=== PATIENT | female | born 1985 | race Caucasian/White ===

== ENCOUNTER 2023-04-07 13:50 | Outpatient (CLI) | payer OTHER, SELFPAY ==
--- NOTE | 2023-04-07 14:00 | CRLHL7_ITS ---
For Patients: As a result of the Cures Act, medical imaging exams and procedure reports are released immediately into your electronic medical record. You may view this report before your referring provider. If you have questions, please contact your health care provider. BILATERAL SCREENING MAMMOGRAM WITH COMPUTER-AIDED DETECTION AND TOMOSYNTHESIS TECHNIQUE: CC and MLO views were obtained. These mammographic images have been obtained using full-field digital technique. These mammographic images were interpreted with the benefit of computer-aided detection. Breast Tomosynthesis was used in this interpretation. COMPARISON FILM: 12/04/21. FINDINGS: The breasts are heterogeneously dense, which may obscure small masses IMPRESSION: There is no radiographic evidence for malignancy. ASSESSMENT: BI-RADS Category 1: Negative RECOMMENDATION: Routine screening mammogram in 1 year. A lay language report of this examination will be provided to the patient. ROSIE GUEVARA M.D. Diagnostic/Nuclear Medicine Radiologist [email or web address] ALISON:pedro Transcribed: 2:10 p.mElaine vasquez/Dictated by: Rosie Guevara MD @ 04/08/2023 9:21:00 AM (Electronically Signed)
== END 2023-04-07 13:51 | disposition home or self-care (01) ==
LOC: MAMMO 13:52
PROVIDERS: PCP Internal Medicine; Visit Provider Physician Assistant
DX: Z12.31 Encounter for screening mammogram for malignant neoplasm of breast (principal); R92.2 Inconclusive mammogram; Z80.3 Family history of malignant neoplasm of breast
CPT/HCPCS: 77063; 77067

== ENCOUNTER 2024-01-13 08:47 | Outpatient (CLI) | payer BC, SELFPAY ==
--- OUTSIDE RECORDS SUMMARY | 2024-01-13 08:49 | XMS_ITS | Clinical Summary ---
Author Organization [facility] Address [place], [place] [address] Care Team Providers Care Director Of Reimbursement Name Role Phone Abel Meléndez MD Primary Care Provider [phone] Allergies No known active allergies Medications Medication Sig Dispensed Refills Start Date End Date Status fluticasone, 50 mcg per actuation, nasal (FLONASE) spray Inhale 1 [place] into both nostrils once daily. 1 Bottle 0 01/01/2013 Active EPINEPHrine (EPIPEN JR) 0.15 mg/0.3 mL (1:2,000) injection Inject 0.15 mg intramuscular one time if needed for Allergic Reaction. 1 Each 0 01/01/2013 Active levalbuterol (XOPENEX HFA) 45 mcg/actuation inhaler Inhale 1-2 Puffs by mouth every 4 hours if needed. 0 01/01/2013 Active INHALANT IMMUNOTHERAPYIndica tions:Allergic rhinitis, unspecified allergic rhinitis type See recipe/order under Chart Review/Scan Tab, dated 07/01/14 0 02/24/2015 Active Active Problems No known active problems Social History Tobacco Use Types Packs/Day Years Used Date Smoking Tobacco: Never Smokeless Tobacco: Never Alcohol Use Standard Drinks/Week Comments Yes 0 (1 standard drink = 0.6 oz pur e alcohol) occasionally Sex and Gender Information Value Date Recorded Sex Assigned at Not on file Gender Identity Not on file Sexual Orientation Not on file Obstetrics History Last Filed Vital Signs Vital Sign Reading Time Taken Comments Blood Pressure 119/77 01/01/2013 10:49 AM CDT tower Pulse 91 01/01/2013 10:49 AM CDT Temperature 36.4 ??C (97.6 ??F) 01/01/2013 1 0:49 AM CDT Respiratory Rate - - Oxygen Saturation 100% 01/01/2013 10: 49 AM CDT room air Inhaled Oxygen Concentration - - Weight 75.3 kg (165 lb 14.4 oz) 013 10:49 AM CDT Height 172.7 cm (5' 8) 01/01/2013 10:4 9 AM CDT Body Mass Index 25.23 01/01/2013 10:49 AM CDT Plan of Treatment Health Maintenance Due Date Last Done Comments Tdap 11/11/1994 Depression screening for age 12+ 1995 HIV for age 15-65 11/11/1998 BMI (ht and wt on same day) for age 18+ 11/11/2001 Hepatitis C screening for age 18-79 11/11/2001 Tetanus booster 2003 COVID-19 vaccine series (2022-24 season) 2023 Pap test for age 21-65 01/06/2024 , 01/05/2021, 06/04/2016, Additional history exists Influenza for age 9-49 02/22/2024 Pneumococcal series for age 6-64 Aged Out No longer eligible based on patient's age to complete this topic Procedures Procedure Name Priority Date/Time Associated Diagnosis Comments TRANSMISSION SPECIALIST THIN PREP PAP SCREEN IMAGED Routine 01/05/2021 11:00 AM CDT from Last 3 Months or Most Recently Relevant to Health Maintenance Results * TRANSMISSION SPECIALIST THIN PREP PAP SCREEN IMAGED (01/05/2021 11:00 AM CDT) Case Report Gynecologic Cytology Report ? Case: [id number] ? Authorizing Provider: ??Caron Hale PA-C ?Collected: ? 01/05/2021 1100 ? Ordering Location: ? [facility] ?Received: ?01/08/2021 0806 ? First Screen: ?Rocio Marie ? Specimen: ?TRANSMISSION SPECIALIST ThinPrep Vial Screening, Cervical/Vaginal ? 01/16/2021 3:00 PM CDT [facility] INTERPRETATION/ RESULT NEGATIVE FOR INTRAEPITHELIAL LESION OR MALIGNANCY (NIL) (none) 01/16/2021 3:00 PM CDT [facility] IMEN ADEQUACY Satisfactory for evaluation No endocervical component seen 01/16/2021 3:00 PM CDT [facility] HPV REQUEST HPV and PAP 01/16/2021 3:00 PM CDT [facility] Last Pap Date 05/05/2016 01/16/2021 3:00 PM CDT [facility] Last Pap Result NIL 3:00 PM T [facility] Comment:-HPV Additional Information 01/16/2021 3:00 PM CDT [facility] Comment: Interpreted at [facility] - [address], [place] [address] Automated Review Successful 01/16/2021 3:00 PM CDT [facility] Comment:Specimen processed s uccessfully by automated entry level drafter device, ThinPrep Imaging System, [employer] ANCILLARY TESTING TRANSMISSION SPECIALIST HPV Ordered, Please see separate report 01/16/2021 3:00 PM CDT [facility] Note The pap test is a screening technique, not a diagnostic procedure. It is used primarily to screen for squamous cancers and precursor lesions. Published studies have shown that it is subject to both false negative and false positive results. The pap test should not be used as the sole means to diagnose or exclude pre-malignant and malignant lesions. 01/16/2021 3:00 PM CDT [facility] Other (Cervical/Vagina l) 01/05/2021 11:00 AM CDT 01/08/2021 8:06 AM CDT September Alexia [facility]TOLOG[facility] [address] [place] [address], from Last 3 Months or Most Recently Relevant to Health Maintenance Care Teams Director Of Reimbursement Relationship Specialty Start Date End Date Abel Meléndez MD [address] [place] [address] PCP - General 01/08/07
--- OUTSIDE RECORDS SUMMARY | 2024-01-13 08:49 | XMS_ITS | Clinical Summary ---
Author Organization [facility] Address [address] [place] [id number] Care Team Providers Care Wool Sacker Name Role Phone Clinic, [facility] Primary Care Provider Allergies Active Allergy Reactions Criticality Noted Date Comments No Known Drug Allergy 05/18/2004 Medications Medication Sig Dispensed Refills Start Date End Date Status LORATADINE 10 MG OR TABS 1 TABLET DAILY 05/18/2004 Active ALPRAZolam (XANAX) 0.5 MG tablet Take 0.5 mg by mouth 3 times daily as needed for anxiety Active Active Problems Problem Noted Date Diagnosed Date Palpitations 05/05/2018 Tachycardia 05/05/2018 Family history of ischemic heart disease 018 Immunizations Name Administration Dates Next Due TD,PF 7+ (Tenivac) 02/21/1998 Family History Medical History Relation Comments Hypertension Father Lipids Father Obesity Father Cancer Maternal Grandfather Skin cancer Cerebrovascular Disease Maternal Grandfather Eye Disorder Maternal Grandfather Cataracts Gastrointestinal Disease Maternal Grandfather Ga stritis Hypertension Maternal Grandfather Osteoporosis Maternal Grandfather Respiratory Maternal Grandfather Emphysema-f armer's lung Arthritis Maternal Grandmother Circulatory Maternal Grandmother Poor circul ation-diabetes Diabetes Maternal Grandmother Type 2 Eye Disorder Maternal Grandmother Cataracts Hypertension Maternal Grandmother Depression Mother Run's on mom's s tiffanie Musculoskeletal Disorder Mother Scolios is? Psychotic Disorder Mother Possible schi zophrenia-no formal diagnosis Breast Cancer Paternal Grandfather C.A.D. Paternal Grandfather Double bypa ss in late 70's Hypertension Paternal Grandfather Lipids Paternal Grandfather Obesity Paternal Grandfather Prostate Cancer Paternal Grandfather Circulatory Paternal Grandmother Poor circul ation-diabetes Diabetes Paternal Grandmother Type 2 Hypertension Paternal Grandmother Lipids Paternal Grandmother Obesity Paternal Grandmother Respiratory Paternal Grandmother Emphysema Relation Status Comments Brother Alive Father in MVA Maternal Grandfather Maternal Grandmother Alive Mother Alive Paternal Grandfather Paternal Grandmother Alive Sister Alive Social History Tobacco Use Types Packs/Day Years Used Date Smoking Tobacco: Never Smokeless Tobacco: Never Alcohol Use Standard Drinks/Week Comments Yes 0 (1 standard drink = 0.6 oz pur e alcohol) 0-1 Drinks Per Week Sex and Gender Information Value Date Recorded Sex Assigned at Not on file Gender Identity Not on file Sexual Orientation Not on file Last Filed Vital Signs Vital Sign Reading Time Taken Comments Blood Pressure 122/80 05/07/2018 7:33 AM SEMIAUTOMATIC 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 Pulse 108 05/07/2018 7:33 AM SEMIAUTOMATIC 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 Temperature 36.5 ??C (97.7 ??F) 05/18/2004 2:06 PM CS T Respiratory Rate 20 05/18/2004 2:06 PM SEMIAUTOMATIC 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 Oxygen Saturation - - Inhaled Oxygen Concentration - - Weight 77.1 kg (170 lb) 05/07/2018 7:33 AM SEMIAUTOMATIC 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 Height 171.5 cm (5' 7.5) 05/07/2018 7:33 AM SEMIAUTOMATIC 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 Body Mass Index 26.23 05/07/2018 7:33 AM SEMIAUTOMATIC 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 Plan of Treatment Not on file Care Teams Wool Sacker Relationship Specialty Start Date End Date Clinic, [facility] [address] [place] [address] PCP - General 02/19/18
--- OUTSIDE RECORDS SUMMARY | 2024-01-13 08:49 | XMS_ITS | Referral Summary ---
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 Pulse 108 05/07/2018 7:33 AM MOTORCYCLE MECHANIC APPRENTICE Temperature 36.5 ??C (97.7 ??F) 05/18/2004 2:06 PM CS T Respiratory Rate 20 05/18/2004 2:06 PM MOTORCYCLE MECHANIC APPRENTICE Oxygen Saturation - - Inhaled Oxygen Concentration - - Weight 77.1 kg (170 lb) 05/07/2018 7:33 AM MOTORCYCLE MECHANIC APPRENTICE Height 171.5 cm (5' 7.5) 05/07/2018 7:33 AM MOTORCYCLE MECHANIC APPRENTICE Body Mass Index 26.23 05/07/2018 7:33 AM MOTORCYCLE MECHANIC APPRENTICE Plan of Treatment Not on file Care Teams Wringer And Setter Relationship Specialty Start Date End Date Clinic, [facility] [address] [place] [address] PCP - General 02/19/18
--- OUTSIDE RECORDS SUMMARY | 2024-01-13 08:50 | XMS_ITS | Encounter Summary ---
Author Organization [place] Address [facility] [place] [address] Care Team Providers Care Input Output Clerk Name Role Phone Nicole Taylor MD Primary Care Provider Clinic, [facility] Primary Care Provider Encounter Details Date Type Department Care Team (Late st Contact Info) Description 11/01/2009 Office Visit-[facility] [address] [phone] Marshall Poole MD [id number] [place] [address] Social History Tobacco Use Types Packs/Day Years Used Date Smoking Tobacco: Never Alcohol Use Standard Drinks/Week Comments Yes 0 (1 standard drink = 0.6 oz pur e alcohol) 0-1 Drinks Per Week Sex and Gender Information Value Date Recorded Sex Assigned at Not on file Gender Identity Not on file Sexual Orientation Not on file documented as of this encounter Progress Notes * Marshall Poole MD - 11/03/2009 8:51 AM CDT Progress Note Created by: Marshall Poole M.D. DATE: 11/01/2009 ADRIEL MCNAIR DATE OF : 1985 AGE: [age] years old Referring Physician: EUGENIA ANTUNEZ Referring Clinic: [facility] CURRENT DIAGNOSES 1. Tachycardia, 785.0 2. - Shortness of Breath, 786.05 3. Dizziness, 780.4 ALLERGIES NKA MEDICATIONS (prior to changes made today) 1. Metoprolol Tartrate 25 Mg Tablet, 1 p.o. twice daily 2. Fexofenadine 180 Mg Tablet, 1 p.o. PRN as Directed 3. Flonase 50 mcg/Actuation [place], Suspension, Take as Directed PRN CHIEF COMPLAINTS Cardiac Assessment HISTORY OF PRESENT ILLNESS I had the pleasure and opportunity of seeing your patient, Adriel Mcnair, in follow up today. As youknow, Adriel is a very pleasant 23-year-old female with a history of inappropriate sinus tachycardia, palpitations, dizziness, and short of breath. She is here for routine cardiovascular follow up. Over the past year, Adriel has done very well. She denies any chest pain. She gets occasional palpitations, but she has had no syncope, near syncope, PND, orthopnea, or pedal edema. She has now changed her diet to become a vegetarian and is afraid that she has overcompensated in her eating of other foods. PAST HISTORY Past Medical Illnesses: asthma, tachycardia,, Left lung pleursy (02/2007) Past Cardiac Illnesses: inappropriate sinus tachycardia Infectious History: no previous history of significant infectious diseases. Trauma History: no previous history of significant trauma. Surgeries/Procedures - General: no previous surgical procedures. Cardiology Procedures-Invasive: no previous interventional or invasive cardiology procedures. Cardiology Procedures-Noninvasive: echocardiogram December 2006, September 2008, holter monitor February 2007,12/27 PMHx Echo Results: 12/27 normal echo, 09/29 No regional wall abnormalities, Trace MR, TR, PVR. Left Ventricular Ejection Fraction: 55-60% by echo 12/27, 09/29 EF 65-70% per echo FAMILY HISTORY: Father - Age 45, and mva; Grandmother (P) - CABG and of myocardial infarction; Grandfather (P) - CABG and of myocardial infarction; CARDIAC RISK FACTORS Tobacco Abuse: negative; Family History of Heart Disease: positive; Hyperlipidemia: lipid status unknown; Hypertension: positive; Diabetes Mellitus: negative; Prior History of Heart Disease: negative; Obesity:BMI<GT>25 (Over weight); Sedentary Life Style:negative; Age:negative; Menopausal:negative SOCIAL HISTORY Alcohol Use - drinks occasionally and 1 time week; Smoking - never smoked; Diet - caffeine use-none, high fiber diet and vegetarian; Lifestyle - single; Exercise - walking and 30 minutes every other day; Seat Belt Use - always; 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 EYES wears eye glasses/contact lenses EARS, NOSE, THROAT, MOUTH positional vertigo, has subsided RESPIRATORY history of asthma CARDIOVASCULAR negative for chest discomfort, palpitations, oocas ABDOMINAL denies change in bowel habits, dyspepsia, ulcer disease, hematochezia or melena. GENITOURINARY-FEMALE regular periods MUSCULOSKELETAL mild pain upper back, same NEUROLOGICAL headaches - gone PSYCHIATRIC anxiety, stress ENDOCRINE denies any history of hyperlipidemia, thyroid disease or diabetes mellitus. HEMATOLOGICAL/IMMUNOLOGIC seasonal allergies PHYSICAL EXAMINATION VITAL SIGNS: Blood Pressure: 122/71Sitting, Right arm, large cuff Pulse- 86.00/min. Weight- 202.40 lbs. Height- 67.00 Temperature- .00 CONSTITUTIONAL well developed, well nourished, in no acute distress SKIN warm and dry to touch HEAD normocephalic, atraumatic EYES Pupils equal and round, conjunctivae and lids unremarkable, sclera white, no xanthalasma ENT no pallor or cyanosis, dentition good NECK carotid pulses are full and equal bilaterally, JVP normal, no carotid bruit, no thyromegaly CHEST clear to auscultation, normal respiratory excursion CARDIAC Regular S1S2, no murmurs, gallops or rubs, heart rate in the 90's PERIPHERAL PULSES 3+ posterior tibial and dorsalis pedis pulses bilaterally EXTREMITIES & BACK no clubbing, cyanosis or edema NEUROLOGICAL no gross motor deficits noted, affect appropriate, oriented to time, person and place. MEDICATIONS UPDATED/STARTED TODAY: Fexofenadine 180 Mg Tablet, 1 p.o. PRN as Directed, 0 Flonase 50 mcg/Actuation [place], Suspension, Take as Directed PRN, #0 Metoprolol Tartrate 25 Mg Tablet, 1 p.o. twice daily, #60 MEDICATIONS REFILLED/STOPPED TODAY: Astrid 28 3-0.03 mg Tablet 1 p.o. qHS 0 Patient Terminated, Fexofenadine 180 mg Tablet 1 p.o. qAM 0Directions Changed-No Abbrvs and Metoprolol Tartrate 25 mg Tablet 1 p.o. twice daily #60 Refill ASSESSMENT/PLAN: Overall, it is a pleasure seeing Adriel back in the clinic. She is stable from a cardiovascular standpoint. Her heart rate is well controlled on beta-blockade. She has no evidence of heart murmur, congestive heart failure, or significant cardiac arrhythmias. Recommend continuing with beta-blockade. We will plan on seeing her in one or two years' time or sooner if symptoms warrant. Please do not hesitate to call me with any questions or concerns. TODAYS ORDERS 1. F/U with Marshall Poole MD 1 year Marshall Poole M.D. documented in this encounter Plan of Treatment Not on file documented as of this encounter Visit Diagnoses Not on filedocumented in this encounter Care Teams Input Output Clerk Relationship Specialty Start Date End Date Nicole Taylor MD [address] [address] PCP - General 05/18/04 02/18/[address] [address] PCP - General 02/19/18 documented as of this encounter
--- OUTSIDE RECORDS SUMMARY | 2024-01-13 08:50 | XMS_ITS | Encounter Summary ---
Author Organization [place] Address [facility] [place] [address] Care Team Providers Care Cotton Gin Yard Supervisor Name Role Phone Nicole Taylor MD Primary Care Provider Clinic, [facility] Medical Primary Care Provider Encounter Details Date Type Department Care Team (Late st Contact Info) Description 01/19/2007 Office Visit-[facility] Heart [id number] [place] [phone] Farheen Dudley, TONEY Social History Tobacco Use Types Packs/Day Years Used Date Smoking Tobacco: Never Alcohol Use Standard Drinks/Week Comments Yes 0 (1 standard drink = 0.6 oz pur e alcohol) 0-1 Drinks Per Week Sex and Gender Information Value Date Recorded Sex Assigned at Not on file Gender Identity Not on file Sexual Orientation Not on file documented as of this encounter Progress Notes * Farheen Dudley NP - 01/23/2007 8:32 AM CDT Progress Note Created by: Farheen Dudley, N.P. [id number] DATE: 01/19/2007 ADRIEL MCNAIR DATE OF : 1985 AGE: [age] years old Referring Physician: EUGENIA ANTUNEZ Referring Clinic: [facility] CURRENT DIAGNOSES 1. Tachycardia, 785.0 2. - Shortness of Breath, 786.05 3. Dizziness, 780.4 ALLERGIES NKA MEDICATIONS (prior to changes made today) 1. Astrid 28 3/0.3mg, 1 p.o. q.d. 2. Lorazepam 1 mg, 1 p.o. b.i.d. 3. Metoprolol ER 25 mg, 1 tablet by mouth qd CHIEF COMPLAINTS F/u echo HISTORY OF PRESENT ILLNESS I had the pleasure of seeing Ms. Adriel Mcnair, a 21-year-old female, who comes to the clinic today for follow up of her most recent echocardiogram per Dr. Poole's request. Ms. Mcnair was seen in consultation at the [facility] on January 14, [address] Marshall Poole with some concerns over her heart racing. She did have a Holter monitor on December 23 that revealed her heart rate to be averaged at 88 beats per minute, minimum of 65 beats per minute, and a maximum of 146 beats per minute with minimal ectopy. With exercise, her heart rate did elevate to 160 to180 beats per minute and was staying persistently elevated, thereafter, at 120 beats per minute forthe remainder of the day. This was quite concerning to her. She actually had also seen the Emergency Room for these episodes of a fast heart rate. She stopped all caffeine. Her asthma medications were also discontinued as her primary care provider felt that this could be contributing to her tachycar ning. Unfortunately, there was no resolution. She had been initiated on lorazepam one tablet twice daily due to the feeling that there might be some anxiety related to the tachycardia. Again, there was no resolution. Dr. Poole did recommend her to undergo an echocardiogram to assess for any cardiomyopathy as a possible underlying problem as she had a viral illness prior to noting the tachycardia. An echocardiogram was performed on January 14, 2007 revealing normal left ventricular chamber size. Her ejection fraction was estimated to be 55% to 60%. Both atria were normal in size. Normal function of the cardiac valves. Mild dilatation of the IVC. No pericardial effusion. Aortic root was normal in size. Sinus tachycardia was noted throughout the study. She has not exercised since the tachycardia began approximately a month ago. She is quite tearful during the conversation as she is quite fearful as to why this is happening and why it has not gottenbetter. She does deny any chest, arm, or jaw pain, PND, orthopnea, syncope, near syncope, dizziness, lightheadedness, palpitations, or edema. She does complain of some fullness in her chest when her heart rate is fast, although this subsides after a few deep breaths and her anxiety medication has impacted this as well. Please see below for review of systems, past medical history, and physical examination. PAST HISTORY Past Medical Illnesses: asthma, tachycardia, Past Cardiac Illnesses: no previous history of cardiac disease. Infectious Diseases: no previous history of significant infectious diseases. Surgical Procedures: no previous surgical procedures. Trauma History: no previous history of significant trauma. Cardiology Procedures-Invasive: no previous interventional or invasive cardiology procedures. Cardiology Procedures-Noninvasive: no previous non-invasive cardiovascular testing. FAMILY HISTORY: Father - Age 45, and mva; Grandmother (P) - CABG and of myocardial infarction; Grandfather (P) - CABG and of myocardial infarction; CARDIAC RISK FACTORS Tobacco Abuse: negative; Family History of Heart Disease: positive; Hyperlipidemia: lipid status unknown; Hypertension: positive; Diabetes Mellitus: negative; Prior History of Heart Disease: negative; Obesity:BMI25 (Over weight); Sedentary Life Style:negative; Age:negative; Menopausal:negative SOCIAL HISTORY Alcohol Use - denies drinking; Smoking - never smoked; Diet - regular diet without modifications and caffeine use-rare; Lifestyle - single; Exercise - some exercise, weight lifting and cardio; 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 EYES denies diplopia, history of glaucoma or visual field defects. EARS, NOSE, THROAT, MOUTH denies any hearing loss, epistaxis, hoarseness or difficulty speaking. RESPIRATORY cough, dyspnea CARDIOVASCULAR chest pain ABDOMINAL nausea before meals and abdominal pain GENITOURINARY-FEMALE regular periods MUSCULOSKELETAL denies any history of arthritic symptoms or back problems. NEUROLOGICAL denies any history of recurrent headaches, strokes, TIA, or seizure disorder. PSYCHIATRIC anxiety, stress ENDOCRINE denies any history of hyperlipidemia, thyroid disease or diabetes mellitus. HEMATOLOGICAL/IMMUNOLOGIC denies any food allergies, seasonal allergies, bleeding disorders or lymphadenopathy. PHYSICAL EXAMINATION VITAL SIGNS: Blood Pressure: 110/76 Sitting, Left arm, regular cuff Pulse- 120.00/min. Weight- 182.00 lbs. Height- 67.00 Temperature- .00 CONSTITUTIONAL cooperative, alert and oriented,well developed, well nourished, in no acute distress., tearful SKIN warm and dry to touch, no apparent skin lesions, or masses noted. HEAD normocephalic, atraumatic EYES Pupils equal and round, conjunctivae and lids unremarkable, sclera white, no xanthalasma ENT no pallor or cyanosis, dentition good NECK carotid pulses are full and equal bilaterally, JVP normal, no carotid bruit, no thyromegaly CHEST normal symmetry, no tenderness to palpation, normal respiratory excursion, no intercostal retraction, no use of accessory muscles, clear to auscultation and percussion. CARDIAC tachycardic, s1,s2 without murmur, JVP within normal limits ABDOMEN abdomen soft, bowel sounds normoactive, no masses, no hepatosplenomegaly, non- tender, no bruits PERIPHERAL PULSES 3+ posterior tibial and dorsalis pedis pulses bilaterally EXTREMITIES & BACK no deformities, clubbing, cyanosis, erythema or edema observed. There are no spinal abnormalities noted. Normal muscle strength and tone. NEUROLOGICAL no gross motor deficits noted, affect appropriate, oriented to time, person and place. MEDICATIONS UPDATED/STARTED TODAY: Metoprolol ER 25 mg, 1 tablet by mouth qd, #30 IMPRESSIONS/PLAN Tachycardia. No structural heart disease is identified on her echocardiogram. Her heart rate remains elevated despite antianxiety medication in the form of lorazepam being started by her PMD. At thistime, I have added metoprolol XL 25 mg q.day to her medication regimen. She will follow up with me in two weeks. I have asked her to begin slowly exercising prior to that visit as well. If she continues to have an increased heart rate, I will consider increasing her beta- blockade at that time. If her heart rate appears to be adequate, I will then have her wear a Holter monitor to determine her heart rate with exercise. This will then guide her care. In regards to her asthma, she has stopped all of her asthma medications per her primary care provider to determine if they were precipitating her tachycardia. She is concerned that her medications have been stopped and her allergy season is soon approaching. I did reinforce that she can reinitiate any nonpseudoephedrine forms of allergy medications. She will talk to her primary care provider to determine if her medications that have been prescribed in the past are appropriate or if they need ella changed. TODAYS ORDERS 1. F/U with Farheen Dudley, MARIA DE JESUS, ANP 7-14 days Farheen Dudley, N.P. documented in this encounter Plan of Treatment Not on file documented as of this encounter Visit Diagnoses Not on filedocumented in this encounter Care Teams Cotton Gin Yard Supervisor Relationship Specialty Start Date End Date Nicole Taylor MD [address] [address] PCP - General 05/18/04 02/18/18 Clinic, [facility] [address] [place] [address] PCP - General 02/19/18 documented as of this encounter
--- OUTSIDE RECORDS SUMMARY | 2024-01-13 08:50 | XMS_ITS | Encounter Summary ---
Author Organization [place] Address [facility] [place] [address] Care Team Providers Care Swine Extension Field Specialist Name Role Phone Nicole Taylor MD Primary Care Provider Clinic, [facility] Medical Primary Care Provider Encounter Details Date Type Department Care Team (Late st Contact Info) Description 01/15/2013 Office Visit-[facility] Heart [facility] [address] [phone] Marshall Poole MD [id number] [place] [phone] Social History Tobacco Use Types [...] Progress Notes * Marshall Poole MD - 01/19/2013 12:41 PM CDT Progress Note Created by: Marshall Poole M.D. DATE: 01/15/2013 ADRIEL MCNAIR DATE OF : 1985 AGE: [age] years old Referring Physician: EUGENIA ANTUNEZ Referring Clinic: [facility] CURRENT DIAGNOSES 1. Tachycardia, 785.0 2. - Shortness of Breath, 786.05 3. Wheezing, 786.07 ALLERGIES NKA MEDICATIONS (prior to changes made today) 1. EpiPen 0.3 mg/0.3 mL (1:1,000) Pen Injector, prn 2. Fexofenadine 180 Mg Tablet, 1 p.o. PRN as Directed 3. Flonase 50 mcg/Actuation [place], Suspension, Take as Directed PRN 4. metoprolol tartrate 25 mg tablet, 1 tablet p.o. prn 5. Multiple Vitamins Daily Tablet, 1 p.o. daily 6. Xopenex HFA 45 mcg/actuation HFA Aerosol Inhaler, Take as Directed CHIEF COMPLAINTS tachycardia HISTORY OF PRESENT ILLNESS I had the pleasure and opportunity of seeing your patient, Adriel Mcnair, in the clinic today. Davids a very pleasant 27-year-old female with a family history of coronary artery disease. She has asthma, seasonal allergies, and a history of palpitations and tachycardia. She also has some anxiety. She tells me that her sister (age 34) recently underwent an ablation for her PVCs. Adriel has really stopped taking her beta-lai (metoprolol). She feels that her palpitations are fine without it. However, it did have a calming affect on her anxiety. Previous echocardiograms [place] no structural heart disease. 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 She also is involved with extracurricular activities such as hip hop dance, ballet, and performing in local plays. She is exercising on a somewhat sporadic basis, but is walking. PAST HISTORY Past Medical Illnesses: seasonal allergies, asthma, Left lung pleursy (02/2007) Past Cardiac Illnesses: inappropriate sinus tachycardia Infectious History: no previous history of significant infectious diseases. Trauma History: no previous history of significant trauma. Surgeries/Procedures - General: no previous surgical procedures. Cardiac/Vasc Procedures-Invasive: no previous interventional or invasive cardiology procedures. Cardiology Procedures-NonInvasive: echocardiogram December 2006, September 2008, October 2010, holter monitor February 2007,12/27 PMHx Echo Results: 12/27 normal echo, 09/29 No regional wall abnormalities, Trace MR, TR, PVR., 10/31 normal Left Ventricular Ejection Fraction: 55-60% by echo 12/27, 09/29 EF 65-70% per echo, EF<GT>55% by Echo -October 2010 55-60% by echo 12/27, 09/29 EF 65-70% per echo and EF<GT>55% by Echo -October 2010 FAMILY HISTORY: Father - Age 45, and mva; Grandmother (P) - CABG and of myocardial infarction; Grandfather (P) - CABG and of myocardial infarction; SOCIAL HISTORY Alcohol Use - drinks occasionally and 1 time week; Smoking - never smoked; Diet - caffeine use-none, high fiber diet and vegetarian; Lifestyle - and drives car; Exercise - walking and 30 minutes every other day; Seat Belt Use - always; 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 INTEGUMENTARY denies any change in hair or nails, rashes, or skin lesions. EYES wears eye glasses/contact lenses EARS, NOSE, THROAT, MOUTH denies any hearing loss, epistaxis, hoarseness or difficulty speaking. RESPIRATORY history of asthma, negative for dyspnea CARDIOVASCULAR chest discomfort, possibly from bad back, rare episodes ABDOMINAL denies change in bowel habits, dyspepsia, ulcer disease, hematochezia or melena. GENITOURINARY-FEMALE regular periods MUSCULOSKELETAL mild pain upper back, same NEUROLOGICAL denies any history of recurrent headaches, strokes, TIA, or seizure disorder. PSYCHIATRIC anxiety, stress ENDOCRINE denies any history of hyperlipidemia, thyroid disease or diabetes mellitus. HEMATOLOGICAL/IMMUNOLOGIC seasonal allergies PHYSICAL EXAMINATION VITAL SIGNS: Blood Pressure: 128/76Sitting, Left arm, large cuff Pulse- 112.00/min. Weight- 168.10 lbs. Height- 67 BMI Measurement: 26 CONSTITUTIONAL Young Female, NAD, alert and oriented, ambulating halls without difficulty SKIN warm and dry HEAD atraumatic EYES EOMI, pupils equal and round ENT speech normal, tongue midline, mucous membranes moist NECK supple without JVD CHEST clear to ascultation CARDIAC RRR without murmr/lift/thrill ABDOMEN non-tender PERIPHERAL PULSES good ankle and radial pulses EXTREMITIES & BACK no edema PSYCHIATRIC appropriate in answers NEUROLOGICAL motor grossly intact MEDICATIONS UPDATED/STARTED TODAY: EpiPen 0.3 mg/0.3 mL (1:1,000) Pen Injector, prn, #0 (Zero) metoprolol tartrate 25 mg tablet, 1 tablet p.o. prn, #20 (Twenty) MEDICATIONS REFILLED/STOPPED TODAY: metoprolol tartrate 25 mg Tablet 1 p.o. twice daily #180 (One [place]y) Physician Order IMPRESSIONS/PLAN Overall, it is a pleasure seeing Adriel Mcnair back in the clinic. We talked about whether or not she would just follow up on a p.r.n basis versus yearly. At this point in time, Adriel would prefer to follow up on an annual basis. She did wish for a prescription of beta-lai that she could take on an as needed basis. I am fine with that. I have given her metoprolol 25 mg p.o p.r.n. Her physical exam was otherwise stable. I will spain on seeing her back in one year's time. Please do not hesitate to call me with any questions or concerns. TODAYS ORDERS 1. Return Visit 1 year Marshall Poole M.D. documented in this encounter Plan of Treatment Not on file documented as of this encounter Visit Diagnoses Not on filedocumented in this encounter Care Teams Swine Extension Field Specialist Relationship Specialty Start Date End Date Nicole Taylor MD [address] [address] PCP - General 05/18/04 02/18/[address] [address] PCP - General 02/19/18 documented as of this encounter
--- OUTSIDE RECORDS SUMMARY | 2024-01-13 08:50 | XMS_ITS | Encounter Summary ---
Author Organization [place] Address [facility] [place] [address] Care Team Providers Care Hot Tamale Worker Name Role Phone Nicole Taylor MD Primary Care Provider Clinic, [facility] Primary Care Provider Encounter Details Date Type Department Care Team (Late st Contact Info) Description 01/14/2007 Office Visit-[facility] Heart [facility] [address] [phone] Marshall Poole MD [id number] [place] [address] Social History Tobacco Use Types [...] Progress Notes * Marshall Poole MD - 01/15/2007 1:17 PM CDT Progress Note Created by: Marshall Poole M.D. DATE: 01/14/2007 ADRIEL DORANTES DATE OF : 1985 AGE: [age] years old Referring Physician: EUGENIA ANTUNEZ Referring Clinic: [facility] CURRENT DIAGNOSES 1. - Shortness of Breath, 786.05 2. Dizziness, 780.4 3. Tachycardia, 785.0 ALLERGIES NKA MEDICATIONS (prior to changes made today) 1. Astrid 28 3/0.3mg, 1 p.o. q.d. 2. Lorazepam 1 mg, 1 p.o. b.i.d. CHIEF COMPLAINTS Tachycardia HISTORY OF PRESENT ILLNESS I had the pleasure and opportunity of seeing your patient, Adriel Dorantes, in consultation today on January 14, 2007. Adriel states that over the past month she has had heart racing. She states that it is nearly always greater than 100 beats per minute, and frequently in the 120-140 range. The thought initially it was it was due to some medications but these have been changed or discontinued and her tachycardia remains. Adriel underwent a 24-hour Holter monitor on 12/23/06 where she had an average heart rate of 88, minimum heart rate of 65, and maximum heart rate of 146. She had minimal ectopy. She hasalso had some dizziness of late, particularly when getting up too quickly, and if she exercises herheart rate will go up into the 160-180 range and will stay persistently elevated at 120 for the remainder of the day. She has backed off on exercise because of this. She has eliminated all caffeinated products, and has actually had to go into the Emergency Room a week ago or so due to an anxiety attack regarding the situation. She denies any history of heart murmur, congestive heart failure, myocardial infarction, angina pectoris, chest pain, or chest pressure. She does have shortness of breath with activity, new onset. She also describes approximately one month ago a bad viral illness where she had fever, chills, rigors, etc. PAST HISTORY Past Medical Illnesses: asthma, tachycardia, [...] lives with male partner; Place of - [place]; Hours Worked - 40 hours per week; REVIEW OF SYSTEMS GENERAL no change in weight, poor appetite INTEGUMENTARY denies any change in hair or nails, rashes, or skin lesions. EYES denies diplopia, history of glaucoma or visual field defects. EARS, NOSE, THROAT, MOUTH denies any hearing loss, epistaxis, hoarseness or difficulty speaking. RESPIRATORY cough, dyspnea CARDIOVASCULAR chest pain, dizziness, light headedness ABDOMINAL nausea before meals and abdominal pain GENITOURINARY-FEMALE regular periods MUSCULOSKELETAL chronic low back pain NEUROLOGICAL denies any history of recurrent headaches, strokes, TIA, or seizure disorder. PSYCHIATRIC anxiety, stress ENDOCRINE denies any history of hyperlipidemia, thyroid disease or diabetes mellitus. HEMATOLOGICAL/IMMUNOLOGIC denies any food allergies, seasonal allergies, bleeding disorders or lymphadenopathy. PHYSICAL EXAMINATION VITAL SIGNS: Blood Pressure: 134/82 Sitting, Left arm, large cuff Pulse- 140.00/min. Weight- 182.00 lbs. Height- 67.00 Temperature- .00 CONSTITUTIONAL cooperative, alert and oriented,well developed, well nourished, in no acute distress. SKIN warm and dry to touch, no [...] hepatosplenomegaly, non- tender, no bruits PERIPHERAL PULSES pulses full and equal in all extremities, no bruits auscultated. EXTREMITIES & BACK no deformities, clubbing, cyanosis, erythema or edema observed. There are no spinal abnormalities noted. Normal muscle strength and tone. NEUROLOGICAL no gross motor deficits noted, affect appropriate, oriented to time, person and place. MEDICATIONS UPDATED/STARTED TODAY: Astrid 28 3/0.3mg, 1 p.o. q.d., 0 Lorazepam 1 mg, 1 p.o. b.i.d., 0 ASSESSMENT/PLAN: Overall, Adriel is a pleasant 21-year-old female who presents with month-long symptoms of tachycardia, shortness of breath, and occasional dizziness following a viral illness. Her cardiovascular exam is otherwise normal other than her tachycardia. I have told Adriel there are two possible etiologies at this point since secondary causes of sinus tachycardia, which are, as you know, far more common have been ruled out. She has no evidence of anemia, thyroid disorder, medication-induced tachycardia, or caffeine-induced tachycardia. Other possibilities include a secondary tachycardia due to an underlying cardiomyopathy, possibly caused by the viral illness; or lastly a possible abnormal sinus node dysfunction, conceivably due to the viral illness affecting the sinoatrial node, inducing either permanent or temporary sinus tachycardia which may need to be treated with beta blockade to prevent long-term tachycardia-mediated cardiomyopathy. We will plan on having her obtain an e chocardiogram to assess LV function and follow up from there regarding further treatment and evaluation. Thank you for having us see this patient and allowing us to participate in her care. Please call mewith any questions or concerns. Marshall Poole M.D. documented in this encounter Plan of Treatment Not on file documented as of this encounter Visit Diagnoses Not on filedocumented in this encounter Care Teams Hot Tamale Worker Relationship Specialty Start Date End Date Nicole Taylor MD [address] [address] PCP - General 05/18/04 02/18/[address] [address] PCP - General 02/19/18 documented as of this encounter
--- OUTSIDE RECORDS SUMMARY | 2024-01-13 08:50 | XMS_ITS | Encounter Summary ---
Author Organization [place] Address [facility] [place] [address] Care Team Providers Care Spinning Mule Operator Name Role Phone Nicole Taylor MD Primary Care Provider [facility], [facility] Primary Care Provider Encounter Details Date Type Department Care Team (Late st Contact Info) Description 10/18/2008 Office Visit-[facility] Heart [facility] [address] [facility] [address] [place] [phone] Vickie Campbell, STORM DOOR MAKER ORCHESTRA TEACHER [address] [facility] [address] [place], [place] [phone] Social History Tobacco Use Types Packs/Day Years Used Date Smoking Tobacco: Never Alcohol Use Standard Drinks/Week Comments Yes 0 (1 standard drink = 0.6 oz pur e alcohol) 0-1 Drinks Per Week Sex and Gender Information Value Date Recorded Sex Assigned at Not on file Gender Identity Not on file Sexual Orientation Not on file documented as of this encounter Progress Notes * Vickie Campbell NP - 10/19/2008 4:28 PM CDT Progress Note Created by: Vickie Campbell N.P. [id number] DATE: 10/18/2008 ADRIEL MCNAIR DATE OF : 1985 AGE: [age] years old Referring Physician: EUGENIA ANTUNEZ Referring Clinic: [facility] CURRENT DIAGNOSES 1. Tachycardia, 785.0 2. - Shortness of Breath, 786.05 3. Dizziness, 780.4 ALLERGIES NKA MEDICATIONS (prior to changes made today) 1. Astrid 28 3/0.3mg, 1 p.o. qHS 2. Fexofenadine Hydrochloride 180 mg, 1 p.o. qAM 3. Lorazepam 1 mg, PRN 4. Metoprolol 25mg, 1 p.o. twice daily CHIEF COMPLAINTS echo results and med-check HISTORY OF PRESENT ILLNESS This is a delightful 22-year-old female who presents to the [facility] today for a follow-up visit. She is a patient of Dr. Poole seen in our clinic for a past medical history of: 1. Inappropriate sinus tachycardia. 2. Asthma. Adriel has a known history of allergies and asthma. She has had documented inappropriate sinus tachycardia, which has been successfully treated with beta blockers for the last couple of years. Due to reinitiating allergy shots her beta blockade was changed to a calcium channel lai short lived. More recently, her calcium channel lai was changed back to metoprolol as she is now on her maintenance allergy shots. Due to production issues this was changed from long acting metoprolol to short acting. She returns today for reassessment. Adriel tells me she has been feeling well. She denies any shortness of breath. She does admit to sharp chest pain that lasts briefly in the middle of her chest that is intermittent. This has been ongoing for a number of years. She does have back troubles at the same location and does wonder if it radiates from her back. She denies any chest discomfort, neck, arm or jaw pain with activity. She denies palpations, light-headedness, dizziness or near syncope. She also denies orthopnea, paroxysmal nocturnal dyspnea or peripheral edema. Her blood pressure today is 113/66 with a heart rate of 81. Her lungs are clear. There is no evidence of any jugular venous distention or peripheral edema. Further review of systems and physical examination are as noted below. 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 EYES wears eye glasses/contact lenses EARS, NOSE, THROAT, MOUTH positional vertigo RESPIRATORY denies dyspnea, snoring, cough, wheezing or hemoptysis. CARDIOVASCULAR per HPI ABDOMINAL denies change in bowel habits, dyspepsia, ulcer disease, hematochezia or melena. GENITOURINARY-FEMALE regular periods MUSCULOSKELETAL mild pain upper back NEUROLOGICAL headaches, wonders if it's the metoprolol PSYCHIATRIC anxiety, stress ENDOCRINE denies any history of hyperlipidemia, thyroid disease or diabetes mellitus. HEMATOLOGICAL/IMMUNOLOGIC denies any food allergies, seasonal allergies, bleeding disorders or lymphadenopathy. PHYSICAL EXAMINATION VITAL SIGNS: Blood Pressure: 113/66 Sitting, Left arm, regular cuff Pulse- 81.00/min. Weight- 173.60 lbs. Height- 67.00 Temperature- .00 CONSTITUTIONAL well [...] time, person and place. MEDICATIONS UPDATED/STARTED TODAY: IMPRESSIONS/PLAN Inappropriate sinus tachycardia. Her heart rate is better controlled on metoprolol and she is feeling quite well. She is hemodynamically stable. Her heart rate actually appears better than it has in awhile with a resting heart rate of 81 beats per minute. I will not make any changes in her medications at this time. I have asked her to notify our clinic if she develops resting heart rate around 100 beats per minute as we will need to increase her beta lai. We would then need to have her return for reassessment of her blood pressure. Otherwise I will have her return in one year with Dr. Poole. Echocardiogram from last year showed preserved left ventricular function and normal functioning valves. Thank you for allowing me to participate in this patient's care. She is to notify our clinic with any chest discomfort, shortness of breath, light- headedness, dizziness or other concerns that she mayhave during the interim. Vickie Campbell N.P. documented in this encounter Plan of Treatment Not on file documented as of this encounter Visit Diagnoses Not on filedocumented in this encounter Care Teams Spinning Mule Operator Relationship Specialty Start Date End Date Nicole Taylor MD [address] [address] PCP - General 05/18/04 02/18/[address] [address] PCP - General 02/19/18 documented as of this encounter
--- OUTSIDE RECORDS SUMMARY | 2024-01-13 08:50 | XMS_ITS | Encounter Summary ---
Author Organization [place] Address [facility] [place] [address] Care Team Providers Care Nut Sheller Name Role Phone Nicole Taylor MD Primary Care Provider Clinic, [facility] Primary Care Provider Encounter Details Date Type Department Care Team (Late st Contact Info) Description 09/26/2008 Office Visit-[facility] Heart [facility] [address] [phone] Marshall Poole MD [id number] [place] [phone] Social History Tobacco Use Types [...] Progress Notes * Marshall Poole MD - 09/28/2008 10:25 AM CDT Progress Note Created by: Marshall Poole M.D. DATE: 09/26/2008 ADRIEL MCNAIR DATE OF : 1985 AGE: [age] years old Referring Physician: EUGENIA ANTUNEZ Referring Clinic: [facility] CURRENT DIAGNOSES 1. Tachycardia, 785.0 2. - Shortness of Breath, 786.05 3. Dizziness, 780.4 ALLERGIES NKA MEDICATIONS (prior to changes made today) 1. Astrid 28 3/0.3mg, 1 p.o. qHS 2. Fexofenadine Hydrochloride 180 mg, 1 p.o. qAM 3. Lorazepam 1 mg, PRN 4. Diltiazem Cd 240mg, 1 p.o. q.d. CHIEF COMPLAINTS Followup of Tachycardia HISTORY OF PRESENT ILLNESS I had the pleasure and opportunity of seeing your patient, Adriel Mcnair, in follow-up today on 09/29/08. Adriel is a very pleasant 22-year-old female with a history of inappropriate sinus tachycardia who we have been treating with beta- blockers successfully. She did need to be transitioned over to Cardizem due to requiring allergy shots. She states that she feels somewhat more anxious and on edge with the calcium channel blockers than the beta-blockers but that it is at least reasonably controlling her heart rate. She is walking on a regular basis without difficulties. She denies any chest pain, syncope, near-syncope. She does get an occasional lower extremity edema. Review of her echocardiogram shows normal left ventricular size and function and normal valvular function. PAST HISTORY Past Medical Illnesses: asthma, tachycardia,, Left lung pleursy (02/2007) Past Cardiac Illnesses: inappropriate sinus tachycardia Infectious History: no previous history of significant infectious diseases. Trauma History: no previous history of significant trauma. Surgeries/Procedures - General: no previous surgical procedures. Cardiology Procedures-Invasive: no previous interventional or invasive cardiology procedures. Cardiology Procedures-Noninvasive: echocardiogram December 2006, holter monitor February 2007,12/27 PMHx Echo Results: 12/27 normal echo Left Ventricular Ejection Fraction: 55-60% by echo 12/27 FAMILY HISTORY: Father - Age 45, and [...] lives with male partner; Place ofBirth - [place]; Hours Worked - 40 hours per week; REVIEW OF SYSTEMS GENERAL feels well, no change in exercise tolerance., weight loss, 13 lbs, has joined a walking club at work INTEGUMENTARY denies any change in hair or nails, rashes, or skin lesions. EYES wears eye glasses/contact lenses EARS, NOSE, THROAT, MOUTH denies any hearing loss, epistaxis, hoarseness or difficulty speaking. RESPIRATORY cough, dyspnea CARDIOVASCULAR chest pain, occ ABDOMINAL denies change in bowel habits, dyspepsia, ulcer disease, hematochezia or melena. GENITOURINARY-FEMALE regular periods MUSCULOSKELETAL mild pain upper back NEUROLOGICAL denies any history of recurrent headaches, strokes, TIA, or seizure disorder. PSYCHIATRIC anxiety, stress ENDOCRINE denies any history of hyperlipidemia, thyroid disease or diabetes mellitus. HEMATOLOGICAL/IMMUNOLOGIC denies any food allergies, seasonal allergies, bleeding disorders or lymphadenopathy. PHYSICAL EXAMINATION VITAL SIGNS: Blood Pressure: 122/81 Pulse- 104.00/min. Weight- 172.80 lbs. Height- 67.00 Temperature- .00 CONSTITUTIONAL cooperative, [...] muscles, clear to auscultation and percussion. CARDIAC Regular S1S2, no murmurs, gallops or rubs, heart rate in the 90's PERIPHERAL PULSES 3+ posterior tibial and dorsalis pedis pulses bilaterally EXTREMITIES & BACK no deformities, clubbing, cyanosis, erythema or edema observed. There are no spinal abnormalities noted. Normal muscle strength and tone. NEUROLOGICAL no gross motor deficits noted, affect appropriate, oriented to time, person and place. MEDICATIONS UPDATED/STARTED TODAY: IMPRESSIONS/PLAN Overall, it is a delight seeing Adriel back in clinic today doing well from a clinical standpoint. We will reinstitute now that the allergy shots are done metoprolol 25mg p.o. b.i.d. We do not still have the long acting metoprolol due to the drug shortage and so she may need to increase the frequency to perhaps t.i.d. or q.i.d. but we will be conservative and start with the b.i.d. dosing. We will bring her back in one month's time to see if further titration is necessary. Otherwise Adriel appearsto be doing well and no other clinical changes have occurred TODAY'S ORDERS D/C Diltiazem Metoprolol 25 mg p.o. BID documented in this encounter Plan of Treatment Not on file documented as of this encounter Visit Diagnoses Not on filedocumented in this encounter Care Teams Nut Sheller Relationship Specialty Start Date End Date Nicole Taylor MD [address] [facility] [address] [place] [address] PCP - General 05/18/04 02/18/[address] [address] PCP - General 02/19/18 documented as of this encounter
--- OUTSIDE RECORDS SUMMARY | 2024-01-13 08:50 | XMS_ITS | Encounter Summary ---
Author Organization [place] Address [facility]0 [facility] [address] Care Team Providers Care Technical Communication Teacher Name Role Phone Nicole Taylor MD Primary Care Provider Clinic, [facility] Primary Care Provider Encounter Details Date Type Department Care Team (Late st Contact Info) Description 03/23/2007 Office Visit-[facility] Heart [address] [place] [phone] Farheen Dudley, TONEY Social History Tobacco Use [...] Progress Notes * Farheen Dudley NP - 04/09/2007 7:22 AM CDT Progress Note Created by: Farheen Dudley, N.P. [id number] DATE: 03/23/2007 ADRIEL MCNAIR DATE OF : 1985 AGE: [age] years old Referring Physician: EUGENIA ANTUNEZ Referring Clinic: [facility] CURRENT DIAGNOSES 1. Tachycardia, 785.0 2. - Shortness of Breath, 786.05 3. Dizziness, 780.4 ALLERGIES NKA MEDICATIONS (prior to changes made today) 1. Medrol Dosepak 4 mg, take as directed 2. Astrid 28 3/0.3mg, 1 p.o. qHS 3. Fexofenadine Hydrochloride 180 mg, 1 p.o. qAM 4. Lorazepam 1 mg, PRN 5. Metoprolol ER 25 mg, 1 tablet twice daily CHIEF COMPLAINTS Followup of Holter monitor HISTORY OF PRESENT ILLNESS I had the pleasure of seeing Ms. Adriel Mcnair, a 21-year-old female, in clinic today to followup her most recent Holter results. Ms. Mcnair is a patient of Dr. Martin Funes, who has been followed after being diagnosed with a history of idiopathic tachycardia, thought possibly precipitated by a viral illness. An echocardiogramhas revealed no evidence of structural heart disease, with a normal ejection fraction. Toprol has been added to her medication regimen. She is here today for followup of a Holter monitor to assess her heart rate control. Since her visit with me on February 02, 2007, Ms. Mcnair did inform me that over the last 2 weeks shehas been treated for an upper respiratory illness, as well as pleurisy. She is presently on a Medrol Dosepak. She did note after her first dose that her heart rate did elevate while watching TV. Thishas now lowered. She occasionally has heart rates in the mid 100s; otherwise, she is in the 80s to 9 0s. She has noticed that she has some occasional chest discomfort, especially when taking a deep breath in and out. She has no exertional pain. She denies paroxysmal nocturnal dyspnea, orthopnea, syncope, near syncope, dizziness, lightheadedness, palpitations, or edema. A Holter monitor did reveal an average heart rate of 86 beats/minute. Minimum heart rate of 65 beats/minute. Maximum heart rate of 133 beats/minute. She had no pauses. Her basic rhythm was normal sinus rhythm. She did have an episode where she documented a quick heart rate and her rhythm was normal sinus tachycardia at 105 beats/minute. She had no supraventricular ectopies noted throughout the 24 hours. Please see below for review of systems, past medical history, and physical examination. PAST HISTORY Past Medical Illnesses: asthma, tachycardia,, Left lung pleursy (02/2007) Past Cardiac Illnesses: Idiopathic tachycardia Infectious Diseases: no previous history of significant infectious diseases. Surgical Procedures: no previous surgical procedures. Trauma History: no previous history of significant trauma. Cardiology Procedures-Invasive: no previous interventional or invasive cardiology procedures. 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 INTEGUMENTARY denies any change in hair or nails, rashes, or skin lesions. EYES wears eye glasses/contact lenses EARS, NOSE, THROAT, MOUTH denies any hearing loss, epistaxis, hoarseness or difficulty speaking. RESPIRATORY cough, dyspnea, better CARDIOVASCULAR negative for palpitations, chest pain, orthopnea, PND, peripheral edema, syncope or claudication. ABDOMINAL denies change in bowel habits, dyspepsia, ulcer disease, hematochezia or melena. GENITOURINARY-FEMALE regular periods MUSCULOSKELETAL denies any history of arthritic symptoms or back problems. NEUROLOGICAL denies any history of recurrent headaches, strokes, TIA, or seizure disorder. PSYCHIATRIC anxiety, stress ENDOCRINE denies any history of hyperlipidemia, thyroid disease or diabetes mellitus. HEMATOLOGICAL/IMMUNOLOGIC denies any food allergies, seasonal allergies, bleeding disorders or lymphadenopathy. PHYSICAL EXAMINATION VITAL SIGNS: Blood Pressure: 110/76 Pulse- 90.00/min. Weight- 183.00 lbs. Height- 67.00 Temperature- .00 CONSTITUTIONAL cooperative, [...] time, person and place. MEDICATIONS UPDATED/STARTED TODAY: Medrol Dosepak 4 mg, take as directed Astrid 28 3/0.3mg, 1 p.o. qHS, 0 Fexofenadine Hydrochloride 180 mg, 1 p.o. qAM, 0 IMPRESSIONS/PLAN 1. Idiopathic tachycardia, precipitated by a viral illness. Echocardiogram has revealed no structural heart disease. She presently is on metoprolol at 25 mg b.i.d. and is tolerating this well. She has noticed increased heart rates over the last 1 to 2 weeks, after she was started on a Medrol Dosepak for pleurisy. She is soon to complete the prescribed treatment. She will remain on metoprolol 25 mg b.i.d. She will return to see Dr. Poole in approximately 6 months to further evaluate her tachycardia and determine if her metoprolol can or should be discontinued. Thank you for allowing me to be involved in Ms. Mcnair's care. She will return to see us in 6 months or sooner if any problems, changes, or concerns. TODAYS ORDERS 1. F/U with Marshall Poole MD 6 months Farheen Dudley, N.P. documented in this encounter Plan of Treatment Not on file documented as of this encounter Visit Diagnoses Not on filedocumented in this encounter Care Teams Technical Communication Teacher Relationship Specialty Start Date End Date Nicole Taylor MD [address] [address] PCP - General 05/18/04 02/18/[address] [address] PCP - General 02/19/18 documented as of this encounter
--- OUTSIDE RECORDS SUMMARY | 2024-01-13 08:50 | XMS_ITS | Encounter Summary ---
Author Organization [place] Address [facility]0 [facility] [address] Care Team Providers Care Drapery Operator Name Role Phone Nicole Taylor MD Primary Care Provider Clinic, [facility] Primary Care Provider Encounter Details Date Type Department Care Team (Late st Contact Info) Description 10/08/2007 Office Visit-[facility] Heart [facility] [id number] [place] [phone] Marshall Poole MD [id number] [place] [address] Social History Tobacco Use Types [...] Progress Notes * Marshall Poole MD - 10/14/2007 10:02 AM CDT Progress Note Created by: Marshall Poole M.D. DATE: 10/08/2007 ADRIEL MCNAIR DATE OF : 1985 AGE: [age] years old Referring Physician: EUGENIA ANTUNEZ Referring Clinic: [facility] CURRENT DIAGNOSES 1. Tachycardia, 785.0 2. - Shortness of Breath, 786.05 3. Dizziness, 780.4 ALLERGIES NKA MEDICATIONS (prior to changes made today) 1. Astrid 28 3/0.3mg, 1 p.o. qHS 2. Fexofenadine Hydrochloride 180 mg, 1 p.o. qAM 3. Lorazepam 1 mg, PRN 4. Metoprolol Er 25 Mg, 1 tablet twice daily CHIEF COMPLAINTS F/u meds HISTORY OF PRESENT ILLNESS I had the pleasure and opportunity to see your patient, Adriel Mcnair, in follow up today for a routine cardiovascular visit. As you know, Adriel is a very pleasant 21-year-old female with a history ofinappropriate sinus tachycardia who is here for routine cardiovascular follow up. Over the past year, she has done well. She notes occasional heart palpitations, but overall is doing well. Her shortness of breath and dizziness has improved. She denies any significant chest pain, exertional symptoms, PND, orthopnea, pedal edema, or syncope. PAST HISTORY Past Medical Illnesses: asthma, tachycardia,, Left lung pleursy (02/2007) Past Cardiac Illnesses: inappropriate sinus tachycardia Infectious History: no previous history of significant infectious diseases. Trauma History: no previous history of significant trauma. Surgeries/Procedures - General: no previous surgical procedures. Cardiology Procedures-Invasive: no previous interventional or invasive cardiology procedures. Cardiology Procedures-Noninvasive: echocardiogram December 2006, holter monitor February 2007 PMHx Echo Results: 12/27 normal echo Left [...] per week; REVIEW OF SYSTEMS GENERAL weight gain, 2.8 since 03/23/07 INTEGUMENTARY denies any change in hair or [...] lymphadenopathy. PHYSICAL EXAMINATION VITAL SIGNS: Blood Pressure: 102/70 Sitting, Left arm, regular cuff Pulse- 88.00/min. Weight- 185.80 lbs. Height- 67.00 Temperature- .00 CONSTITUTIONAL cooperative, [...] person and place. MEDICATIONS UPDATED/STARTED TODAY: Metoprolol Er 25 Mg, 1 tablet twice daily, #60 MEDICATIONS REFILLED/STOPPED TODAY: Metoprolol Er 25 Mg 1 tablet twice daily #60 Refill IMPRESSIONS/PLAN IMPRESSION/PLAN: Overall, it is a pleasure seeing Adriel back in the clinic appearing stable from a cardiovascular standpoint. Her physical exam and heart rate are well controlled. We talked about thepossibility of trying to taper off of her beta-blockers. However, I do believe that she would probably go back over 100 again. At this point in time, I would keep things as they are. She otherwise appears stable and asymptomatic. I would encourage her to increase her exercise. I will plan on seeing her back in one year's time or sooner if symptoms warrant. Please do not hesitate to call me with any questions or concerns. Marshall Poole M.D. documented in this encounter Plan of Treatment Not on file documented as of this encounter Visit Diagnoses Not on filedocumented in this encounter Care Teams Drapery Operator Relationship Specialty Start Date End Date Nicole Taylor MD [address] [facility] [address] [place] [address] PCP - General 05/18/04 02/18/[address] [address] PCP - General 02/19/18 documented as of this encounter
--- OUTSIDE RECORDS SUMMARY | 2024-01-13 08:50 | XMS_ITS | Encounter Summary ---
Author Organization [place] Address [facility] [place] [address] Care Team Providers Care Roller Checker Name Role Phone Nicole Taylor MD Primary Care Provider Clinic, [facility] Medical Primary Care Provider Encounter Details Date Type Department Care Team (Late st Contact Info) Description 11/15/2010 Office Visit-[facility] [phone] [place] [phone] Marshall Poole MD [phone] [place] [address] Social History Tobacco Use Types [...] Progress Notes * Marshall Poole MD - 11/20/2010 2:26 PM CDT Progress Note Created by: Marshall Poole M.D. DATE: 11/15/2010 ADRIEL MCNAIR DATE OF : 1985 AGE: [age] years old Referring Physician: EUGENIA ANTUNEZ Referring Clinic: [facility] CURRENT DIAGNOSES 1. Tachycardia, 785.0 2. - Shortness of Breath, 786.05 ALLERGIES NKA MEDICATIONS (prior to changes made today) 1. Fexofenadine 180 Mg Tablet, 1 p.o. PRN as Directed 2. Flonase 50 mcg/Actuation [place], Suspension, Take as Directed PRN 3. Metoprolol Tartrate 25 Mg Tablet, 1 p.o. twice daily CHIEF COMPLAINTS Review echo HISTORY OF PRESENT ILLNESS I had the pleasure and opportunity of seeing your patient, Adriel Mcnair, in follow-up today for an annual cardiovascular visit on 11/15/10. Adriel is here for follow-up of her tachycardia, episodic shortness of breath. She has done very well over the past year. She continues to take her beta-blockerprescription on a daily basis without difficulties. She notes occasional heart racing but really only with anxiety conditions. She has had no syncope, near-syncope, PND, orthopnea, pedal edema or chest pain. Her dyspnea has improved and her dizziness is essentially resolved. Review of her echocardiogram shows normal left ventricular size and function and normal valvular function. In addition, the patient does give a history of some family history of tachyarrhythmias and wanted that put in her records. PAST HISTORY Past Medical Illnesses: asthma, tachycardia,, Left lung pleursy (02/2007) Past Cardiac Illnesses: inappropriate sinus tachycardia Infectious History: no previous history of significant infectious diseases. Trauma History: no previous history of significant trauma. Surgeries/Procedures - General: no previous surgical procedures. Cardiac/Vasc Procedures-Invasive: no previous interventional or invasive cardiology procedures. Cardiology Procedures-NonInvasive: echocardiogram December 2006, September 2008, holter monitor [...] lives with male partner; Place of - [place]; Hours Worked - 50 hours per week; REVIEW OF SYSTEMS GENERAL review echo INTEGUMENTARY denies any change in hair or nails, rashes, or skin lesions. EYES wears eye glasses/contact lenses EARS, NOSE, THROAT, MOUTH positional vertigo, has subsided RESPIRATORY history of asthma, negative for dyspnea CARDIOVASCULAR denies chest pain, denies palpitations, denies dizziness ABDOMINAL denies change in bowel habits, dyspepsia, ulcer disease, hematochezia or melena. GENITOURINARY-FEMALE regular periods MUSCULOSKELETAL mild pain upper back, same NEUROLOGICAL headaches - gone PSYCHIATRIC anxiety, stress ENDOCRINE denies any history of hyperlipidemia, thyroid disease or diabetes mellitus. HEMATOLOGICAL/IMMUNOLOGIC seasonal allergies PHYSICAL EXAMINATION VITAL SIGNS: Blood Pressure: 110/70Sitting, Right arm, regular cuff Pulse- 64.00/min. Weight- 191.00 lbs. Height- 67.00 Temperature- .00 CONSTITUTIONAL well [...] person and place. MEDICATIONS UPDATED/STARTED TODAY: Metoprolol Tartrate 25 Mg Tablet, 1 p.o. twice daily, #60 MEDICATIONS REFILLED/STOPPED TODAY: Metoprolol Tartrate 25 Mg Tablet 1 p.o. twice daily #60 Refill IMPRESSIONS/PLAN It is a delight seeing Adriel back in clinic appearing stable from a cardiovascular standpoint. Physical exam and echocardiogram are stable. She has been well controlled with her heart racing and tachycardia on beta-blockade. I have recommended that she continue to exercise on a more regular basis but have congratulated bart her 10-pound weight loss over the past year. We will plan on seeing her back in one year's time or sooner can do sooner if symptoms need. [place] not hesitate to call me with any questions. TODAYS ORDERS 1. F/U with Marshall Poole MD 1 year Marshall Poole M.D. documented in this encounter Plan of Treatment Not on file documented as of this encounter Visit Diagnoses Not on filedocumented in this encounter Care Teams Roller Checker Relationship Specialty Start Date End Date Nicole Taylor MD [address] [address] PCP - General 05/18/04 02/18/[address] [address] PCP - General 02/19/18 documented as of this encounter
--- OUTSIDE RECORDS SUMMARY | 2024-01-13 08:50 | XMS_ITS | Encounter Summary ---
Author Organization [place] Address [facility] [place] [address] Care Team Providers Care Chiropractic Practice Manager Name Role Phone Nicole Taylor MD Primary Care Provider Clinic, [facility] Primary Care Provider Encounter Details Date Type Department Care Team (Late st Contact Info) Description 12/05/2011 Office Visit-[facility] [address] [phone] Herrera Escalona MD XXX XXX [address] [facility] [address] [place], [place] [id number] Social History Tobacco Use Types Packs/Day Years Used Date Smoking Tobacco: Never Alcohol Use Standard Drinks/Week Comments Yes 0 (1 standard drink = 0.6 oz pur e alcohol) 0-1 Drinks Per Week Sex and Gender Information Value Date Recorded Sex Assigned at Not on file Gender Identity Not on file Sexual Orientation Not on file documented as of this encounter Progress Notes * Herrera Escalona MD - 12/20/2011 11:03 AM CDT Progress Note Created by: Herrera Escalona M.D. DATE: 12/05/2011 ADRIEL MCNAIR DATE OF : 1985 AGE: [age] years old Referring Physician: EUGENIA ANTUNEZ Referring Clinic[facility] CURRENT DIAGNOSES 1. - Shortness of Breath, 786.05 2. Tachycardia, 785.0 ALLERGIES NKA MEDICATIONS (prior to changes made today) 1. Fexofenadine 180 Mg Tablet, 1 p.o. PRN as Directed 2. Flonase 50 mcg/Actuation [place], Suspension, Take as Directed PRN 3. metoprolol tartrate 25 mg Tablet, 1 p.o. twice daily 4. Multiple Vitamins Daily Tablet, 1 p.o. daily 5. Xopenex HFA 45 mcg/actuation HFA Aerosol Inhaler, Take as Directed CHIEF COMPLAINTS HISTORY OF PRESENT ILLNESS Adriel Mcnair was seen in our office today for her tachycardia. She is normally seen by Dr. Poole in my office but because of scheduling problems she was scheduled to see me. The patient is a young female who has been followed for about the last five years because of tachycardia. The echocardiograms have shown no structural heart disease. She denies any use of amphetamines, cocaine, weight loss pills, or other stimulants. She has been a nonsmoker. The patient returns to the office today and states that she feels well. She needs refills of her metoprolol, which is at a very low dose of 25 mg p.o. b.i.d. She has had no chest pain, chest pressure, or chest heaviness. There have been no significant palpitations. She tells me she believes that the episode she had several years ago may have been related to anxiety, although at times if she skipsa dose of metoprolol she notices some faster heart rates. Physical exam is as listed below. 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 EYES wears eye glasses/contact lenses EARS, NOSE, THROAT, MOUTH denies any hearing loss, epistaxis, hoarseness or difficulty speaking. RESPIRATORY history of asthma, negative for dyspnea CARDIOVASCULAR chest discomfort, possibly from bad back ABDOMINAL denies change in bowel habits, dyspepsia, ulcer disease, hematochezia or melena. GENITOURINARY-FEMALE regular periods MUSCULOSKELETAL mild pain upper back, same NEUROLOGICAL headaches - gone PSYCHIATRIC anxiety, stress ENDOCRINE denies any history of hyperlipidemia, thyroid disease or diabetes mellitus. HEMATOLOGICAL/IMMUNOLOGIC seasonal allergies PHYSICAL EXAMINATION VITAL SIGNS: Blood Pressure: 106/76Sitting, Right arm, regular cuff Pulse- 72.00/min. Weight- 181.00 lbs. Height- 67.00 BMI Measurement: 28 CONSTITUTIONAL Young Female, NAD, alert and oriented, [...] NEUROLOGICAL motor grossly intact MEDICATIONS UPDATED/STARTED TODAY: metoprolol tartrate 25 mg Tablet, 1 p.o. twice daily, #180 ([place]) Multiple Vitamins Daily Tablet, 1 p.o. daily, #0 (Zero) Xopenex HFA 45 mcg/actuation HFA Aerosol Inhaler, Take as Directed, #0 (Zero) MEDICATIONS REFILLED/STOPPED TODAY: Metoprolol Tartrate 25 Mg Tablet 1 p.o. twice daily #60 Refill IMPRESSIONS/PLAN ASSESSMENT/RECOMMENDATIONS: 1. The patient has tachycardia which I agree is probably benign. She has been treated with beta-lai with improvement of her symptoms over the last four to five years. 2. I discussed with the patient that if she wanted to try getting off the beta-lai I would have no problems with that. She could take the beta-lai on a p.r.n. basis. If she feels tachycardic or anxious, she could resume the pill. 3. I have given her an electronic prescription for the beta- lai. She most recently hadan echocardiogram a year ago and I see no indication for repeating it at this time. She will be seen back in about one year's time. Thank you very much for allowing us to participate in the care of your patient. Should you have anyquestions about this patient or any other patient, please feel free to contact us at any time. TODAYS ORDERS 1. F/U with Marshall Poole MD 1 year Herrera Escalona M.D. documented in this encounter Plan of Treatment Not on file documented as of this encounter Visit Diagnoses Not on filedocumented in this encounter Care Teams Chiropractic Practice Manager Relationship Specialty Start Date End Date Nicole Taylor MD [address] [address] PCP - General 05/18/04 02/18/[address] [address] PCP - General 02/19/18 documented as of this encounter
--- OUTSIDE RECORDS SUMMARY | 2024-01-13 08:50 | XMS_ITS | Encounter Summary ---
Author Organization [place] Address [facility] [place] [address] Care Team Providers Care Rehabilitation Services Counselor Name Role Phone Nicole Taylor MD Primary Care Provider Clinic, [facility] Medical Primary Care Provider Encounter Details Date Type Department Care Team (Late st Contact Info) Description 02/02/2007 Office Visit-[facility] [id number] [place] [phone] Farheen Dudley, TONEY Social History Tobacco Use [...] Progress Notes * Farheen Dudley NP - 02/17/2007 4:59 PM CDT Progress Note Created by: Farheen Dudley, N.P. [id number] DATE: 02/02/2007 ADRIEL MCNAIR DATE OF : 1985 AGE: [age] years old Referring Physician: EUGEINA ANTUNEZ Referring Clinic: [facility] CURRENT DIAGNOSES 1. Tachycardia, 785.0 2. - Shortness of Breath, 786.05 3. Dizziness, 780.4 ALLERGIES NKA MEDICATIONS (prior to changes made today) 1. Astrid 28 3/0.3mg, 1 p.o. q.d. 2. Lorazepam 1 mg, PRN 3. Metoprolol ER 25 mg, 1 tablet twice daily 4. Fexofenadine Hydrochloride 180 mg, 1 tablet daily CHIEF COMPLAINTS F/u tachycardia HISTORY OF PRESENT ILLNESS I had the pleasure of seeing Ms. Adriel Mcnair, a 21-year-old female, in the clinic today for followup of her most recent medication change. Ms. Mcnair is followed here at the [facility] by Dr. Marshall Poole. She has a history of tachycardia with an idiopathic cause other than she had a viral illness prior to its precipitation. An echocardiogram did not reveal any evidence of structural heart disease. She has a normal ejection fraction. Metoprolol was added to her medication regimen at her last visit to try to lower her heart rate. Since her last visit with me on January 19, 2007, she had been feeling markedly better. Her anxiety had improved. She attempted to walk with her boyfriend. After 20 minutes, she had to stop as she felt somewhat tired. She did not feel her heart racing like previously. She also has a history of asthma.Xopenex was added to her medication regimen. She felt some tightness across her chest, therefore she self discontinued the medication. She is taking fexofenadine 180 mg daily. She has marked improvement in her asthma. She has noted no wheezing on the metoprolol. She also denies any chest, arm, or jaw pain, PND, orthopnea, syncope, near syncope, dizziness, lightheadedness, palpitations, or edema. 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 PHYSICAL EXAMINATION VITAL SIGNS: Blood Pressure: 132/72 Sitting, Left arm, regular cuff Pulse- 112.00/min. Weight- 185.00 lbs. Height- 67.00 Temperature- .00 CONSTITUTIONAL cooperative, [...] time, person and place. MEDICATIONS UPDATED/STARTED TODAY: Lorazepam 1 mg, PRN, 0 Metoprolol ER 25 mg, 1 tablet twice daily, #60 Fexofenadine Hydrochloride 180 mg, 1 tablet daily, 0 MEDICATIONS REFILLED/STOPPED TODAY: Metoprolol ER 25 mg 1 tablet by mouth qd #30 Dosage Increased IMPRESSIONS/PLAN Tachycardia. No structural heart disease was identified on her recent echocardiogram. She did have a viral illness prior to noting the tachycardia episode that caused her to seek Emergency Room attention in early December. She is tolerating the metoprolol XL 25 mg daily. Presently, her heart rate is farhan roximately 112 beats per minute. I have asked her to increase her metoprolol XL to 25 mg twice daily. I did review the side effects with her. If she were to notice any increased wheezing or difficulty breathing, she is to decrease her dose and call our clinic. Otherwise in approximately three weeks, she will undergo a Holter monitor to assess her heart rate response to exercise as well as rest. She will then follow up with me to determine if any further recommendations are necessary. If she is stable, I will then have her follow up with Dr. Poole in three to six months to determine if or when her metoprolol could be discontinued. Thank you for allowing me to be involved in Ms. Mcnair's care. She will return to see me as scheduled and will call in the interim if there are any problems, changes, or concerns. TODAYS ORDERS 1. Holter Monitor 3 -4 weeks 2. F/U with Farheen Dudley, MSN, ANP 4-6 weeks Farheen Dudley, N.P. documented in this encounter Plan of Treatment Not on file documented as of this encounter Visit Diagnoses Not on filedocumented in this encounter Care Teams Rehabilitation Services Counselor Relationship Specialty Start Date End Date Nicole Taylor MD [address] [address] PCP - General 05/18/04 02/18/[address] [address] PCP - General 02/19/18 documented as of this encounter
== END 2024-01-13 08:48 | disposition home or self-care (01) ==
PROVIDERS: PCP Internal Medicine; Visit Provider Physician Assistant
DX: Z13.220 Encounter for screening for lipoid disorders (principal); Z13.1 Encounter for screening for diabetes mellitus; Z13.29 Encounter for screening for other suspected endocrine disorder
CPT/HCPCS: 80061; 82947; 84443

== ENCOUNTER 2024-04-08 08:04 | Outpatient (CLI) | payer BC, SELFPAY ==
--- OUTSIDE RECORDS SUMMARY | 2024-04-08 08:06 | XMS_ITS | Clinical Summary ---
Author Organization [employer] [facility] Address [place], [place] [address] Care Team Providers Care Staff Pharmacist Name Role Phone Abel Meléndez MD Primary Care Provider Allergies No known active allergies Medications Medication Sig Dispensed Refills Start Date End Date Status fluticasone, 50 mcg per actuation, nasal (FLONASE) spray Inhale 1 [place] into both nostrils once daily. 1 Bottle [...] for age 18-79 11/11/2001 Tetanus booster 2003 Pap test for age 21-65 01/06/2024 , 01/05/2021, 06/04/2016, Additional history exists COVID-19 vaccine series ( season) 2024 Influenza for age 9-49 02/22/2024 Pneumococcal series for age 6-64 Aged Out No longer eligible based on patient's age to complete this topic Procedures Procedure Name Priority Date/Time Associated Diagnosis Comments HADOOP ANALYST THIN PREP PAP SCREEN IMAGED Routine 01/05/2021 11:00 AM CDT from Last 3 Months or Most Recently Relevant to Health Maintenance Results * HADOOP ANALYST THIN PREP PAP SCREEN IMAGED (01/05/2021 11:00 AM CDT) Case Report Gynecologic Cytology Report ? Case: [id number] ? Authorizing Provider: ??Caron Hale PA-C ?Collected: ? 01/05/2021 1100 ? Ordering Location: ? [facility] ?Received: ?01/08/2021 0806 ? First Screen: ?Rocio Marie ? Specimen: ?HADOOP ANALYST ThinPrep Vial Screening, Cervical/Vaginal ? 01/16/2021 3:00 PM CDT [facility] INTERPRETATION/ RESULT NEGATIVE FOR INTRAEPITHELIAL LESION OR MALIGNANCY (NIL) (none) 01/16/2021 3:00 PM CDT [facility] IMEN ADEQUACY Satisfactory for evaluation No endocervical component seen 01/16/2021 3:00 PM CDT [facility] HPV REQUEST HPV and PAP 01/16/2021 3:00 PM CDT [facility] Last Pap Date 05/05/2016 01/16/2021 3:00 PM CDT [facility] Last Pap Result NIL 3:00 PM T [facility] Comment:-HPV Additional Information 01/16/2021 3:00 PM CDT [facility] Comment: Interpreted at [facility] Central Laboratory - [address], [place] [address] Automated Review Successful 01/16/2021 3:00 PM CDT [facility] Comment:Specimen processed s uccessfully by automated utility agent device, ThinPrep Imaging System, [employer] ANCILLARY TESTING HADOOP ANALYST HPV Ordered, Please see separate report 01/16/2021 3:00 PM CDT [facility] Note The pap test is a [...] and malignant lesions. 01/16/2021 3:00 PM CDT [facility] Other (Cervical/Vagina l) 01/05/2021 11:00 AM CDT 01/08/2021 8:06 AM CDT September Alexia [facility] [address] [place] [address], from Last 3 Months or Most Recently Relevant to Health Maintenance Care Teams Staff Pharmacist Relationship Specialty Start Date End Date Abel Meléndez MD [address] [place] [address] PCP - General 01/08/07
--- OUTSIDE RECORDS SUMMARY | 2024-04-08 08:07 | XMS_ITS | Referral Summary ---
Author Organization [place] Address [address] [place] [address] Care Team Providers Care Cable Assembler And Swager Name Role Phone Clinic, [facility] Primary Care Provider Allergies Active Allergy Reactions [...] Comments Blood Pressure 122/80 05/07/2018 7:33 AM CERTIFIED ORTHOTIST/PEDORTHIST Pulse 108 05/07/2018 7:33 AM CERTIFIED ORTHOTIST/PEDORTHIST Temperature 36.5 ??C (97.7 ??F) 05/18/2004 2:06 PM CS T Respiratory Rate 20 05/18/2004 2:06 PM CERTIFIED ORTHOTIST/PEDORTHIST Oxygen Saturation - - Inhaled Oxygen Concentration - - Weight 77.1 kg (170 lb) 05/07/2018 7:33 AM CERTIFIED ORTHOTIST/PEDORTHIST Height 171.5 cm (5' 7.5) 05/07/2018 7:33 AM CERTIFIED ORTHOTIST/PEDORTHIST Body Mass Index 26.23 05/07/2018 7:33 AM CERTIFIED ORTHOTIST/PEDORTHIST Plan of Treatment Not on file Care Teams Cable Assembler And Swager Relationship Specialty Start Date End Date Clinic, [facility] [address] [place] [address] PCP - General 02/19/18
--- OUTSIDE RECORDS SUMMARY | 2024-04-08 08:07 | XMS_ITS | Encounter Summary ---
Author Organization [place] Address [facility] [place] [address] Care Team Providers Care Network Security Architect Name Role Phone Nicole Taylor MD Primary Care Provider Clinic, [facility] Primary Care Provider Encounter Details Date Type Department Care Team (Late st Contact Info) Description 12/05/2011 Office Visit-[facility] [address] [phone] Herrera Escalona MD XXX XXX [address] [facility] [address] [place], [place] [address] Social History Tobacco Use Types Packs/Day Years [...] PRN as Directed 2. Flonase 50 mcg/Actuation [place], Suspension, Take as Directed PRN 3. 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 twice daily, #180 (One [place] Eighty) Multiple Vitamins Daily Tablet, 1 p.o. [...] on filedocumented in this encounter Care Teams Network Security Architect Relationship Specialty Start Date End Date Nicole Taylor MD [address] [address] PCP - General 05/18/04 02/18/[address] [address] PCP - General 02/19/18 documented as of this encounter
--- OUTSIDE RECORDS SUMMARY | 2024-04-08 08:07 | XMS_ITS | Encounter Summary ---
Author Organization [place] Address [facility] [place] [address] Care Team Providers Care Workers Compensation Administrator Name Role Phone Nicole Taylor MD Primary Care Provider Clinic, [facility] Medical Primary Care Provider Encounter Details Date Type Department Care Team (Late st Contact Info) Description 02/02/2007 Office Visit-[facility] [id number] [place] [address] Farheen Dudley, TONEY Social History [...] Progress Note Created by: Farheen Dudley, N.P. [id number] DATE: 02/02/2007 ADRIEL MCNAIR DATE OF : 1985 AGE: [age] years old Referring Physician: EUGENIA ANTUNEZ Referring Clinic: [facility] CURRENT DIAGNOSES 1. Tachycardia, 785.0 2. [...] Ms. Mcnair is followed here at the [facility] by Dr. Marshall Poole. She [...] lives with male partner; Place of - [place]; Hours Worked - 40 hours per week; [...] 3 -4 weeks 2. F/U with Farheen Dudely, MSN, ANP 4-6 weeks Farheen Dudley, N.P. documented in this encounter Plan of Treatment Not on file documented as of this encounter Visit Diagnoses Not on filedocumented in this encounter Care Teams Workers Compensation Administrator Relationship Specialty Start Date End Date Nicole Taylor MD [address] [address] PCP - General 05/18/04 02/18/[address] [address] PCP - General 02/19/18 documented as of this encounter
--- OUTSIDE RECORDS SUMMARY | 2024-04-08 08:07 | XMS_ITS | Encounter Summary ---
Author Organization [place] Address [facility] [place] [address] Care Team Providers Care Circular Stuffer Name Role Phone Nicole Taylor MD Primary Care Provider Clinic, [facility] Primary Care Provider Encounter Details Date Type Department Care Team (Late st Contact Info) Description 10/08/2007 Office Visit-[facility] [address] [phone] Marshall Poole MD [phone] [place] [address] Social History Tobacco Use Types [...] Clinic: [facility] CURRENT DIAGNOSES 1. Tachycardia, 785.0 2. [...] lives with male partner; Place of - [place]; Hours Worked - 40 hours [...] on filedocumented in this encounter Care Teams Circular Stuffer Relationship Specialty Start Date End Date Nicole Taylor MD [address] [facility] [address] [place] [address] PCP - General 05/18/04 02/18/[address] [address] PCP - General 02/19/18 documented as of this encounter
--- OUTSIDE RECORDS SUMMARY | 2024-04-08 08:07 | XMS_ITS | Clinical Summary ---
Author Organization [place] Address [address] [place] [address] Care Team Providers Care Baker Test Name Role Phone Clinic, [facility] Primary Care Provider Allergies Active Allergy Reactions [...] Comments Blood Pressure 122/80 05/07/2018 7:33 AM TILE LAYER Pulse 108 05/07/2018 7:33 AM TILE LAYER Temperature 36.5 ??C (97.7 ??F) 05/18/2004 2:06 PM CS T Respiratory Rate 20 05/18/2004 2:06 PM TILE LAYER Oxygen Saturation - - Inhaled Oxygen Concentration - - Weight 77.1 kg (170 lb) 05/07/2018 7:33 AM TILE LAYER Height 171.5 cm (5' 7.5) 05/07/2018 7:33 AM TILE LAYER Body Mass Index 26.23 05/07/2018 7:33 AM TILE LAYER Plan of Treatment Not on file Care Teams Baker Test Relationship Specialty Start Date End Date Clinic, [facility] [address] [place] [address] PCP - General 02/19/18
--- OUTSIDE RECORDS SUMMARY | 2024-04-08 08:07 | XMS_ITS | Encounter Summary ---
Author Organization [place] Address [facility] [place] [address] Care Team Providers Care Plate Maker Name Role Phone Nicole Taylor MD Primary Care Provider Clinic, [facility] Primary Care Provider Encounter Details Date Type Department Care Team (Late st Contact Info) Description 09/26/2008 Office Visit-[facility] [address] [phone] Marshall Poole MD [phone] [place] [address] Social History Tobacco Use Types [...] old Referring Physician: EUGENIA ANTUNEZ Referring Clinic: [facility] CURRENT DIAGNOSES 1. Tachycardia, 785.0 2. - Shortness of Breath, 786.05 3. Dizziness, 780.4 ALLERGIES NKA MEDICATIONS (prior to changes made today) 1. Astrdi 28 3/0.3mg, 1 p.o. qHS 2. Fexofenadine [...] lives with male partner; Place ofBirth - [place]; Hours Worked - 40 hours [...] on filedocumented in this encounter Care Teams Plate Maker Relationship Specialty Start Date End Date Nicole Taylor MD [address] [facility] [address] [place] [address] PCP - General 05/18/04 02/18/[address] [address] PCP - General 02/19/18 documented as of this encounter
--- OUTSIDE RECORDS SUMMARY | 2024-04-08 08:07 | XMS_ITS | Encounter Summary ---
Author Organization [place] Address [facility] [place] [address] Care Team Providers Care Solidworks Mechanical Designer Name Role Phone Nicole Taylor MD Primary Care Provider Clinic, [facility] Primary Care Provider Encounter Details Date Type Department Care Team (Late st Contact Info) Description 01/19/2007 Office Visit-[facility] [id number] [place] [phone] Farheen Dudley, TONEY Social History [...] Progress Note Created by: Farheen Dudley, N.P. [id number] DATE: 01/19/2007 ADRIEL MCNAIR DATE OF : [...] Mcnair was seen in consultation at the [facility] on January 14, 2007 by [...] lives with male partner; Place of - [place]; Hours Worked - 40 hours per week; [...] ella changed. TODAYS ORDERS 1. F/U with Fraheen Dudley, MARIA DE JESUS, ANP 7-14 days Farheen Dudley, N.P. documented in this encounter Plan of Treatment Not on file documented as of this encounter Visit Diagnoses Not on filedocumented in this encounter Care Teams Solidworks Mechanical Designer Relationship Specialty Start Date End Date Nicole Taylor MD [address] [address] PCP - General 05/18/04 02/18/18 Clinic, [facility] [address] [place] [address] PCP - General 02/19/18 documented as of this encounter
--- OUTSIDE RECORDS SUMMARY | 2024-04-08 08:07 | XMS_ITS | Encounter Summary ---
Author Organization [place] Address [facility] [place] [address] Care Team Providers Care Environmental Emergencies Assistant Name Role Phone Nicole Taylor MD Primary Care Provider [facility], [facility] Primary Care Provider Encounter Details Date Type Department Care Team (Late st Contact Info) Description 10/18/2008 Office Visit-[facility] [address]405 [facility] [address] [place] [phone] Vickie Campbell, COACH PROFESSIONAL ATHLETES CLINICAL UNIT EDUCATOR [address] [facility] [address] [place], [place] [phone] Social History Tobacco Use Types Packs/Day Years [...] Progress Note Created by: Vickie Campbell N.P. [id number] DATE: 10/18/2008 ADRIEL MCNAIR DATE OF : [...] delightful 22-year-old female who presents to the [facility] today for a follow-up visit. [...] lives with male partner; Place ofBirth - [place]; Hours Worked - 40 hours per week; [...] on filedocumented in this encounter Care Teams Environmental Emergencies Assistant Relationship Specialty Start Date End Date Nicole Taylor MD [address] [address] PCP - General 05/18/04 02/18/[address] [address] PCP - General 02/19/18 documented as of this encounter
--- OUTSIDE RECORDS SUMMARY | 2024-04-08 08:07 | XMS_ITS | Encounter Summary ---
Author Organization [place] Address [facility]0 [facility] [place] [address] Care Team Providers Care Stock Chaser Name Role Phone Nicole Taylor MD Primary Care Provider Clinic, [facility] Primary Care Provider Encounter Details Date Type Department Care Team (Late st Contact Info) Description 11/15/2010 Office Visit-[facility] [phone] [place] [phone] Marshall Poole MD [phone] [place] [address] Social History Tobacco Use Types [...] old Referring Physician: EUGENIA ANTUNEZ Referring Clinic: [facility] CURRENT DIAGNOSES 1. Tachycardia, 785.0 2. - Shortness of Breath, 786.05 ALLERGIES NKA MEDICATIONS (prior to changes made today) 1. Fexofenadine 180 Mg Tablet, 1 p.o. PRN as Directed 2. Flonase 50 mcg/Actuation [place], Suspension, Take as Directed PRN 3. Metoprolol [...] Place of - [place]; Hours Worked - 50 hours per week; [...] on filedocumented in this encounter Care Teams Stock Chaser Relationship Specialty Start Date End Date Nicole Taylor MD [address] [address] PCP - General 05/18/04 02/18/[address] [address] PCP - General 02/19/18 documented as of this encounter
--- OUTSIDE RECORDS SUMMARY | 2024-04-08 08:07 | XMS_ITS | Encounter Summary ---
Author Organization [place] Address [facility]0 [facility] [address] Care Team Providers Care Childbirth And Infant Care Teacher Name Role Phone Nicole Taylor MD Primary Care Provider Clinic, [facility] Primary Care Provider Encounter Details Date Type Department Care Team (Late st Contact Info) Description 11/01/2009 Office Visit-[facility] [address] [phone] Marshall Poole MD [phone] [place] [address] Social History Tobacco Use Types [...] old Referring Physician: EUGENIA ANTUNEZ Referring Clinic: [facility] CURRENT DIAGNOSES 1. Tachycardia, 785.0 2. - Shortness of Breath, 786.05 3. Dizziness, 780.4 ALLERGIES NKA MEDICATIONS (prior to changes made today) 1. Metoprolol Tartrate 25 Mg Tablet, 1 p.o. twice daily 2. Fexofenadine 180 Mg Tablet, 1 p.o. PRN as Directed 3. Flonase 50 mcg/Actuation [place], Suspension, Take as Directed PRN CHIEF COMPLAINTS [...] lives with male partner; Place of - [place]; Hours Worked - 50 hours per week; [...] PRN as Directed, 0 Flonase 50 mcg/Actuation [place], Suspension, Take as Directed PRN, #0 Metoprolol [...] on filedocumented in this encounter Care Teams Childbirth And Infant Care Teacher Relationship Specialty Start Date End Date Nicole Taylor MD [address] [address] PCP - General 05/18/04 02/18/[address] [address] PCP - General 02/19/18 documented as of this encounter
--- OUTSIDE RECORDS SUMMARY | 2024-04-08 08:07 | XMS_ITS | Encounter Summary ---
Author Organization [place] Address [facility]0 [facility] [place] [address] Care Team Providers Care Plumbing Service Technician Name Role Phone Nicole Taylor MD Primary Care Provider Clinic, [facility] Primary Care Provider Encounter Details Date Type Department Care Team (Late st Contact Info) Description 01/14/2007 Office Visit-[facility] [address] [phone] Marshall Poole MD [phone] [place] [address] Social History Tobacco Use Types [...] old Referring Physician: EUGENIA ANTUNEZ Referring Clinic: [facility] CURRENT DIAGNOSES 1. - Shortness of [...] lives with male partner; Place of - [place]; Hours Worked - 40 hours per week; [...] on filedocumented in this encounter Care Teams Plumbing Service Technician Relationship Specialty Start Date End Date Nicole Taylor MD [address] [address] PCP - General 05/18/04 02/18/[address] [address] PCP - General 02/19/18 documented as of this encounter
--- OUTSIDE RECORDS SUMMARY | 2024-04-08 08:07 | XMS_ITS | Encounter Summary ---
Author Organization [place] Address [facility] [address] Care Team Providers Care Foundry Process Engineer Name Role Phone Nicole Taylor MD Primary Care Provider Clinic, [facility] Primary Care Provider Encounter Details Date Type Department Care Team (Late st Contact Info) Description 03/23/2007 Office Visit-[facility] [address] [place] [phone] Farheen Dudley, TONEY Social History Tobacco Use [...] Progress Note Created by: Farheen Dudley, N.P. [id number] DATE: 03/23/2007 ADRIEL MCNAIR DATE OF : 1985 AGE: [age] years old Referring Physician: EUGENIA ANTUNEZ Referring Clinic: [facility] CURRENT DIAGNOSES 1. Tachycardia, 785.0 2. [...] lives with male partner; Place of - [place]; Hours Worked - 40 hours per week; [...] on filedocumented in this encounter Care Teams Foundry Process Engineer Relationship Specialty Start Date End Date Nicole Taylor MD [address] [address] PCP - General 05/18/04 02/18/[address] [address] PCP - General 02/19/18 documented as of this encounter
--- OUTSIDE RECORDS SUMMARY | 2024-04-08 08:07 | XMS_ITS | Encounter Summary ---
Author Organization [place] Address [facility] [place] [address] Care Team Providers Care Lead Shipper Name Role Phone Nicole Taylor MD Primary Care Provider Clinic, [facility] Primary Care Provider Encounter Details Date Type Department Care Team (Late st Contact Info) Description 01/15/2013 Office Visit-[facility] Heart [facility] [address] [phone] Marshall Poole MD [phone] [place] [address] Social History Tobacco Use Types [...] old Referring Physician: EUGENIA ANTUNEZ Referring Clinic: [facility] CURRENT DIAGNOSES 1. Tachycardia, 785.0 2. - Shortness of Breath, 786.05 3. Wheezing, 786.07 ALLERGIES NKA MEDICATIONS (prior to changes made today) 1. EpiPen 0.3 mg/0.3 mL (1:1,000) Pen Injector, prn 2. Fexofenadine 180 Mg Tablet, 1 p.o. PRN as Directed 3. Flonase 50 mcg/Actuation [place], Suspension, Take as Directed PRN 4. metoprolol [...] structural heart disease. 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 twice daily #180 ([place]) Physician Order IMPRESSIONS/PLAN Overall, it is [...] on filedocumented in this encounter Care Teams Lead Shipper Relationship Specialty Start Date End Date Nicole Taylor MD [address] [address] PCP - General 05/18/04 02/18/[address] [address] PCP - General 02/19/18 documented as of this encounter
--- NOTE | 2024-04-08 08:15 | CRLHL7_ITS ---
For Patients: As a result of the Century Cures Act, medical imaging exams and procedure reports are released immediately into your electronic medical record. You may view this report before your referring provider. If you have questions, please contact your health care provider. BILATERAL SCREENING MAMMOGRAM WITH COMPUTER-AIDED DETECTION AND TOMOSYNTHESIS TECHNIQUE: CC and MLO views were obtained. These mammographic images have been obtained using full-field digital technique. These mammographic images were interpreted with the benefit of computer-aided detection. Breast Tomosynthesis was used in this interpretation. COMPARISON FILM: 04/07/23, 12/04/21. FINDINGS: There are scattered areas of fibroglandular density IMPRESSION: There is no radiographic evidence for malignancy. ASSESSMENT: BI-RADS Category 1: Negative RECOMMENDATION: Routine screening mammogram in 1 year. A lay language report of this examination will be provided to the patient. Luis Fernando Stearns M.D. Diagnostic Radiologist [email or web address] [email or web address]/pedro Transcribed: 2:42 p.judi vasquez/Dictated by: Luis Fernando Stearns MD @ 04/13/2024 10:06:00 AM (Electronically Signed)
== END 2024-04-08 08:05 | disposition home or self-care (01) ==
LOC: MAMMO 08:05
PROVIDERS: PCP Internal Medicine; Visit Provider Physician Assistant
DX: Z12.31 Encounter for screening mammogram for malignant neoplasm of breast (principal)
CPT/HCPCS: 77063; 77067

== ENCOUNTER 2025-02-03 10:35 | Outpatient (CLI) | payer BC, SELFPAY | END 2025-02-03 10:36 | disposition home or self-care (01) | PROVIDERS: PCP Internal Medicine; Visit Provider Physician Assistant | DX: Z00.00 Encounter for general adult medical examination without abnormal findings (principal); F41.9 Anxiety disorder, unspecified; R53.83 Other fatigue; Z79.899 Other long term (current) drug therapy | CPT/HCPCS: 82306; 84443 ==

== ENCOUNTER 2025-02-18 09:34 | Outpatient (CLI) | payer BC, SELFPAY ==
--- NOTE | 2025-02-18 09:45 | CRLHL7_ITS ---
For Patients: As a result of the Century Cures Act, medical imaging exams and procedure reports are released immediately into your electronic medical record. You may view this report before your referring provider. If you have questions, please contact your health care provider. BILATERAL DIAGNOSTIC MAMMOGRAM WITH COMPUTER-AIDED DETECTION AND TOMOSYNTHESIS LEFT BREAST ULTRASOUND CLINICAL HISTORY: LEFT breast pain. COMPARISON: 04/08/2024, 04/07/2023, 12/04/2021. TECHNIQUE: Digital BILATERAL mammogram in four projections with computer-aided detection. Tomosynthesis was used in this interpretation. Real-time ultrasound imaging of LEFT breast with imaging documentation. BREAST COMPOSITION: There are scattered areas of fibroglandular density. FINDINGS: 3D CC/MLO BILATERAL mammogram images submitted. No suspicious masses or architectural distortion. No suspicious calcifications or adenopathy. Targeted LEFT breast ultrasound performed at 5 o`clock 4 cm from the nipple. Normal fibroglandular tissue is present. No fibrocystic change or mass. IMPRESSION: No suspicious findings. No evidence of malignancy. RECOMMENDATIONS: Routine screening mammography. A lay language report of this examination will be provided to the patient. BI-RADS Category 2: Benign Dictated by Luis Fernando Stearns MD @ 02/18/2025 12:21:55 PM /sp SP/Dictated by: Luis Fernando Stearns MD @ 02/18/2025 12:21:00 PM (Electronically Signed)
--- NOTE | 2025-02-18 10:15 | CRLHL7_ITS ---
For Patients: As a result of the Century Cures Act, medical imaging exams and procedure reports are released immediately into your electronic medical record. You may view this report before your referring provider. If you have questions, please contact your health care provider. PLEASE SEE BILATERAL BREAST DIAGNOSTIC MAMMOGRAM PERFORMED SAME DAY. CRL:sp SP/Dictated by: Luis Fernando Stearns MD @ 02/18/2025 12:22:00 PM (Electronically Signed)
== END 2025-02-18 09:35 | disposition home or self-care (01) ==
LOC: MAMMO 09:34
PROVIDERS: PCP Internal Medicine; Visit Provider Physician Assistant
DX: N64.4 Mastodynia (principal); Z80.3 Family history of malignant neoplasm of breast
CPT/HCPCS: 76642; 77066; G0279

== ENCOUNTER 2025-03-14 06:37 | Outpatient (CLI) | payer BC, SELFPAY ==
--- NOTE | 2025-03-14 07:55 | P.ANES_ITS ---
Anesthesia Charges Start Date/Time Anesthesia Start Date: 03/14/25 Anesthesia Start Time: 07:25 Stop Date/Time Anesthesia Stop Date: 03/14/25 Anesthesia Stop Time: 07:50 Coding CPT Codes CPT Codes: SHARRI LWR INTST SCR COLSC - 06315 ([id number]) P2 - PATIENT W/MILD SYST DISEASE, QX - VEGETABLE I FARMWORKER SVC W/ MD MED DIRECTION, QK - PERIPATOLOGIST 2-4 CNCRNT ANES PROC
--- NOTE | 2025-03-14 07:55 | W.ANESCHARGE ---
Anesthesia Charges Start Date/Time Anesthesia Start Date: 03/14/25 Anesthesia Start Time: 07:25 Stop Date/Time Anesthesia Stop Date: 03/14/25 Anesthesia Stop Time: 07:50 Coding CPT Codes CPT Codes: SHARRI LWR INTST SCR COLSC - 53369 ([id number]) P2 - PATIENT W/MILD SYST DISEASE, QX - TUBE FITTER SVC W/ MD MED DIRECTION, QK - LEAN SENSEI 2-4 CNCRNT ANES PROC
--- NOTE | 2025-03-14 09:03 | P.ANES_ITS ---
Anesthesia Charges Start Date/Time Anesthesia Start Date: 03/14/25 Anesthesia Start Time: 07:25 Stop Date/Time Anesthesia Stop Date: 03/14/25 Anesthesia Stop Time: 07:50 Coding CPT Codes CPT Codes: SHARRI LWR INTST SCR COLSC - 91392 ([id number]) QK - MATERIAL CHECKER 2-4 CNCRNT SHARRI PROC, QX - CONFERENCE ORGANIZER SVC W/ MD MED DIRECTION, P2 - PATIENT W/MILD SYST DISEASE
--- NOTE | 2025-03-14 09:03 | W.ANESCHARGE ---
Anesthesia Charges Start Date/Time Anesthesia Start Date: 03/14/25 Anesthesia Start Time: 07:25 Stop Date/Time Anesthesia Stop Date: 03/14/25 Anesthesia Stop Time: 07:50 Coding CPT Codes CPT Codes: SHARRI LWR INTST SCR COLSC - 69836 ([id number]) QK - NAIL GALVANIZER 2-4 CNCRNT SHARRI PROC, QX - BIODIESEL PRODUCTION ASSOCIATE SVC W/ MD MED DIRECTION, P2 - PATIENT W/MILD SYST DISEASE
== END 2025-03-14 06:38 | disposition home or self-care (01) ==
LOC: OP CLINIC 06:38
PROVIDERS: PCP Internal Medicine; Visit Provider Internal Medicine
DX: Z12.11 Encounter for screening for malignant neoplasm of colon (principal); Z80.0 Family history of malignant neoplasm of digestive organs
CPT/HCPCS: 00812; 45378; J2704